=== PATIENT | female | born 1995 | race Caucasian/White ===

== ENCOUNTER 2022-11-17 06:56 | Emergency (ER) | payer SELFPAY ==
[2022-11-17 06:58] VITALS: BP 124/74; PULSE 94; RESP 15; TEMP 36.6; O2SAT 98
--- NOTE | 2022-11-17 07:11 | ED.GENADUL_ITS ---
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 Patient states that this is her first day off in a long time, and last night she had some cerumen cookie bars, with a small amount of recreational cocaine, and some alcohol. This was early in the evening, and went down without significant event, however at 4 AM she felt a sudden mood swing and took 2 or 3 handfuls of Tylenol, they were 325 mg apiece, and it was 20 to 30 tablets. She immediately regretted the decision, and did not know why she did that, but blamed it on the fluctuation in her mood from the previous drugs. She immediately began vomiting and vomited a few times to try to get all of the medication out. She states that she saw most of the pills in her vomitus that she felt that she consumed. She did have a fight with her verbally friend earlier in the evening, but states that this did not play into the emotional component that caused the Tylenol overdose. She called EMS out of concern that perhaps she took these and some made it through and she was concerned for her wellbeing. She denies any homicidal or suicidal ideations whatsoever at this time. She regrets the decision completely. When she was a young child she did try to cut herself superficially few times, but denies any other previous suicide attempts otherwise. No other complaints at this time. No other modifying factors. She denies any abdominal pain, chest pain, or shortness of breath. No numbness tingling or weakness. Exam demonstrates well-appearing female, vital signs stable. No neurologic abnormalities on exam. She certainly denies any suicidal ideations whatsoever at this time. Secondary to the action that she performed we will consult mental health for formal assessment although I do feel she is safe and does not need an observation sitter, or inpatient placement at this time. We will medically evaluate and clear the patient, monitor closely and reassess. Once her initial Tylenol level comes back we will reach out to poison control. Case will be signed out to my colleague Dr. Maribeth Tyson for follow-up on labs and consultations. HPI General Date/Time Provider Initiated Documentation: 11/17/22 07:07 . 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 Patient states that this is her first day off in a long time, and last night she had some cerumen cookie bars, with a small amount of recreational cocaine, and some alcohol. This was early in the evening, and went down without significant event, however at 4 AM she felt a sudden mood swing and took 2 or 3 handfuls of Tylenol, they were 325 mg apiece, and it was 20 to 30 tablets. She immediately regretted the decision, and did not know why she did that, but blamed it on the fluctuation in her mood from the previous drugs. She immediately began vomiting and vomited a few times to try to get all of the medication out. She states that she saw most of the pills in her vomitus that she felt that she consumed. She called EMS out of concern that perhaps she took these and some made it through and she was concerned for her wellbeing. She denies any homicidal or suicidal ideations whatsoever at this time. She regrets the decision completely. When she was a young child she did try to cut herself superficially few times, but denies any other previous suicide attempts otherwise. No other complaints at this time. No other modifying factors. She denies any abdominal pain, chest pain, or shortness of breath. No numbness tingling or weakness. General Stated Complaint: PsychEval BERT: 2 Review of Systems All systems reviewed & are unremarkable except as noted in HPI and below PFSH All Active Problems (Updated 11/17/22 @ 07:18 by Vlad Gilman DO) Overdose (Acute) Social History Smoking risk assessment performed?: No Exam Narrative Exam Narrative: 1.Const: Well-nourished, Well-developed, appearing stated age 2.Eyes: PERRL, no conjunctival injection, and symmetrical lids. 3.ENT: Atraumatic external nose and ears. Moist MM. Neck: Symmetric, trachea midline, No thyromegaly. 4.CVS: +S1/S2, No murmurs or gallops. Peripheral pulses 2+ and equal in all extremities. Brisk capillary refill in all extremities. 5.RESP: Unlabored respiratory effort. Clear to auscultation bilaterally. No wheezes rales or rhonchi 6.GI: Soft, Nontender/Nondistended, No hepatosplenomegaly. No guarding or rebound. 7.MSK: Normocephalic/Atraumatic, Extremities w/o deformity or ttp No cyanosis or clubbing, Normal movement of all extremities 8.Skin: Warm, Dry. No rashes or lesions. 9.Neuro: director of radiology II-XII grossly intact. Sensation grossly intact, no focal neurologic deficits. 10.Psych: (AAO) x3. Appropriate mood and affect Course Vital Signs Vital signs: Vital Signs Temperature 36.6 C 11/17/22 06:58 Pulse 94 H 11/17/22 06:58 Respiratory Rate 15 11/17/22 06:58 Blood Pressure 124/74 11/17/22 06:58 Pulse Oximetry 98 11/17/22 06:58 Temperature 36.6 C 11/17/22 06:58 Temperature Source Oral 11/17/22 06:58 Pulse 94 H 11/17/22 06:58 Respiratory Rate 15 11/17/22 06:58 Blood Pressure 124/74 11/17/22 06:58 Blood Pressure Position Sitting 11/17/22 06:58 Pulse Oximetry 98 11/17/22 06:58 Oxygen Delivery Method Room Air 11/17/22 06:58 Oxygen Flow Rate 0 11/17/22 06:58 Pain Level 10 11/17/22 06:58
--- NOTE | 2022-11-17 07:15 | RT.EKG_ITS ---
APPROVED REPORT Exam: Resting ECG Reason for Exam: overdose Patient Location: E HR:73 bpm ECG Measurements Heart Rate 73 AXIS WY 123 P 64 QRSd 87 QRS 46 QT 406 T 51 QTc 447 Conclusion Sinus rhythm...normal P axis, V-rate 60- 99 Physician: no stemi
[2022-11-17 07:43] LABS: *AMPHETAMINES SCREEN URINE Negative (Negative); *BARBITURATES SCREEN URINE Negative (Negative); *BENZODIAZEPINES SCREEN URINE Negative (Negative); Cannabinoids THC Positive (Negative); Cocaine Screen,Urine Positive (Negative); METHADONE URINE SCREEN Negative (Negative); OPIATES URINE SCREEN Negative (Negative); Tricyclic Antidepressants Negative (Negative)
[2022-11-17 07:45] LABS: Abs Immature Grans 0.05 10^3/uL (0.0-0.06); Absolute Eosinophil Count 0.59 10^3/uL (0.0-0.7); Absolute Monocyte Count 1.17 10^3/uL (0.1-0.8); Basophils % 0.9; Eosinophils % 3.9; HCT 41.6 % (36.0-46.0); Immature Grans % 0.3; Lymphocytes % 20.7; MCH 32.3 pg (27.0-33.0); MCHC 33.7 % (32.0-36.0); MCV 96 fL (80-95); MPV 9.8 fL (8.0-11.0); Monocytes % 7.7; Neutrophils % 66.5; Platelet Count 359 10^3/uL (130-400); RBC 4.33 10^6/uL (3.93-5.22); RDW 13.3 % (11.7-14.6); RDW-SD 47.8 fL; WBC 15.25 10^3/uL (4.4-10.8)
[2022-11-17 07:47] LABS: Absolute Basophil Count 0.14 10^3/uL (0.0-0.2); Absolute Lymphocyte Count 3.16 10^3/uL (1.2-3.4); Absolute Neutrophil Count 10.14 10^3/uL (1.2-6.7)
[2022-11-17 08:07] LABS: Acetaminophen 80 ug/mL (10-30); Salicylate < 2.8 mg/dL (<2.8)
[2022-11-17 08:19] LABS: ALT 17 U/L (14-59); AST 14 U/L (15-37); Albumin 3.9 g/dL (3.4-5.0); Alkaline Phosphatase 104 U/L (46-116); Anion Gap 10.3 mmol/L (3-11); BUN 3 mg/dL (7-18); Bilirubin, Total 0.9 mg/dL (0.2-1.0); CO2 24.7 mmol/L (21.0-32.0); CREATININE 0.7 mg/dL (0.55-1.02); Calcium 8.5 mg/dL (8.5-10.1); Chloride 108 mmol/L (98-107); ETHANOL BLOOD 38.1 mg/dL (<10); Estimated GFR 123.01 (mL/min/1.73m2); Glucose 90 mg/dL (74-106); Potassium 3.5 mmol/L (3.5-5.1); Sodium 143 mmol/L (136-145); TSH (W/Ref FT4) 1.48 uIU/mL (0.36-3.74); Total Protein 6.5 g/dL (6.4-8.2)
--- NOTE | 2022-11-17 09:22 | ED.PROG_ITS ---
Date of service: 11/17/22 Time of Service: 09:22 Medical Decision Making Patient resting comfortably no acute distress. No SI no HI. No signs of intoxication or trauma. No nausea vomiting or abdominal pain. Patient is hemodynamically stable. Has been screened by [facility] human services and cleared from a psychiatric perspective. Elevated Tylenol level at 3-hour yuridia which cannot be plotted on nomogram, will obtain repeat Tylenol level at 11 AM. Will empirically begin NAC prophylactically and will discontinue if levels below treatment line at 11 AM. 11: 57 patient did have some nausea and 1 episode of emesis controlled with fluids and Zofran. Resting comfortably no further episodes. Labs showing normal liver function and bilirubin. Initial Tylenol level was drawn before the 4-hour yuridia, repeat Tylenol level was drawn at 11 hours which falls below the nomogram of toxicity. Patient did receive an empiric dose of NAC while waiting for second Tylenol result, will be able to discontinue NAC at this juncture. Patient feeling comfortable to go home. Hemodynamically stable no acute distress. Given strict return precautions for any worsening symptoms Sign Out Sign Out Data: Sign Out Comment: Accidental Tylenol overdose, follow-up on labs and Tylenol and work-up and psych eval. Last updated by Vlad Gilman DO at 11/17/22 07:27 Discharge Plan Disposition Patient Disposition: Home Discharge Details Chief Complaint: PsychEval Clinical Impression: Overdose, Tylenol ingestion Primary Care Provider: None,None ED Provider: Jhonathan Kunz Discharge Instructions Instructions: Acetaminophen Overdose (ED), Adult Overdose (ED) Additional Instructions: Please follow-up with your primary care physician. Please return to the emergency department for any worsening symptoms
[2022-11-17] MEDS: Ondansetron 4 MG/2 ML VIAL IVP (10:25)
[2022-11-17 11:39] LABS: Acetaminophen 29 ug/mL (10-30)
--- NOTE | 2022-11-19 14:58 | NUR.NOTE ---
Accessed chart to determine orders for EKG and to determine whether or not one needs to be cancelled. Nursing Note:
== END 2022-11-17 12:25 | disposition home or self-care (01) ==
PROVIDERS: Student in an Organized Health Care Education/Training Program; Emergency Provider Emergency Medicine
DX: T39.1X1A Poisoning by 4-Aminophenol derivatives, accidental (unintentional), initial encounter (principal)
CPT/HCPCS: 80053; 80307; 81025; 93005; 96365; 96366; 96375; 99284; 80320; 80329; 84443; 85025; 93010; J0132; J2405

== ENCOUNTER 2023-04-10 22:38 | Emergency (ER) | payer SELFPAY ==
[2023-04-10] VITALS (18 sets, daily range): BP systolic 130; BP diastolic 81; PULSE 69–77; RESP 16; TEMP 37.1; O2SAT 98–100
--- NOTE | 2023-04-10 22:45 | W.ED.GENAD ---
Discharge Plan Disposition Patient Disposition: Home Discharge Details Clinical Impression: Adnexal cyst, Pelvic pain Primary Care Provider: None,None ED Provider: Chelita Pang Home Meds and New Rx's Prescriptions: No Action No Known Home Meds Discharge Instructions Instructions: Ovarian Cyst (ED), Dehydration (ED), Pelvic Pain in Women (ED) Additional Instructions: 1. You will be contacted by women's wellness with an appointment. Tell them that we tested for STIs in the department but you have not been given the results. 2. Call [phone] to schedule a pelvic ultrasound. 3. Alternate 1000 mg of acetaminophen and every 3 hours with 400 to 600 mg of ibuprofen as needed for pain. For pain not relieved by acetaminophen or ibuprofen you may take hydrocodone/acetaminophen that we dispensed tonight. This can be habit-forming. It can cause drowsiness as well as constipation. You should not drink alcohol, drive, operate heavy machinery or make important decisions while taking this medication. 4. Return here for any new or worrisome symptoms. Stand Alone Forms: Work Release Discharge Data Discharge Date/Time-TO BE ENTERED AT DEPARTURE: 04/11/23 01:22 Discharge Physician: Chelita Pang Medical Decision Making This is a 28-year-old female who presents with right lower quadrant pain that began 1 to 2 days prior to arrival. She does have a history of ovarian cyst and had similar although not identical symptoms at that time. She also has had nausea vomiting and diarrhea but has been able to keep down some food and liquids. She has not had emesis in several hours. She also endorses fever and chills although she has not been febrile while in the department. However she did take acetaminophen but that was greater than 4 hours ago and unlikely to still be having an effect. Her pelvic exam is reassuring. Her test done shortly after arrival is negative. We will obtain a CT scan to rule out appendicitis since ultrasound is not available. I will treat her with IV acetaminophen and ketorolac. Will keep her n.p.o. and give her IV fluids. She has not had any nausea or vomiting while in the department. We will wait for her renal function prior to CT contrast since she does have a history of nephrotic syndrome as a child. Will also check a urine for evidence of infection. If she does have appendicitis we will consult general surgery otherwise I will likely have her follow-up with ACCOUNTING RECONCILIATION CLERK and will arrange for an outpatient ultrasound. Disposition will depend on ancillary services. She could also have viral gastroenteritis or food poisoning but the symptoms have been going on only 1 to 2 days and there is no indication at this point to obtain stool samples. Differential Diagnosis Differential Diagnosis: Ovarian cyst, appendicitis, UTI, mesenteric adenitis, gastroenteritis Medical Records Medical records reviewed: Yes I reviewed the patient's medical records. Imaging Data Radiologic Study: Imaging: CT Scan (CT abdomen and pelvis without IV contrast) Radiologist's impression: vRad impression: Cystic areas in the adnexa measuring up to 4.9 cm. Differential possibilities include severely dilated fallopian tubes versus cystic masses. Correlate for pelvic inflammatory disease. Further evaluation with pelvic ultrasound may be helpful. No CT evidence for appendicitis. Nonspecific nonobstructed bowel gas pattern which may represent mild enteritis. Lab Data Lab results reviewed: Yes I reviewed the patient's lab results. Lab results narrative: Normal electrolytes normal renal function, mild leukocytosis with left shift, mild dehydration no evidence of UTI, GC and chlamydia pending HPI General Date/Time Provider Initiated Documentation: 04/10/23 22:45. Limitations to Documentation: no limitations. Information obtained by: patient. HPI Narrative: Time seen was 2245 in bed 8. The patient is a 28-year-old G0, P0 who presents with right lower quadrant pain which began 1 to 2 days prior to arrival. The patient has 1 sexual partner and does not use control but is not trying to get . She does have a history of ovarian cysts and tells me that the pain is similar but not identical to her prior symptoms with ovarian cysts. The pain began 1 to 2 days ago. It is constant but fluctuates in severity it is 7-8 out of 10 in severity and relieved by lying down and aggravated by upright position. It radiates to her right hip. She has had previous urinary tract infections and states her symptoms today are not similar to those symptoms. She denies any sick contacts or vaginal discharge she has had nausea vomiting and diarrhea for 1 day. She did take Dramamine prior to arrival as well as 1000 mg of acetaminophen at 5 PM. She denies any blood in her stool. She tells me she had nephrotic syndrome as a young child. She also endorses subjective fever and chills. She denies any foreign travel or unusual foods or sick contacts. She had eggs and toast prior to the onset of her nausea vomiting and diarrhea. She did not have pizza at 6 PM tonight. She took 1000 mg of acetaminophen at 5 PM this afternoon with minimal relief. She has regular menstrual cycles. Related Data Home Medications Medication Instructions Recorded Confirmed Unknown [No Known Home Meds] 04/10/23 04/10/23 Allergies Allergy/AdvReac Type Severity Reaction Status Date / Time No Known Allergies Allergy Unverified 04/10/23 22:50 General BERT: 2 Review of Systems Narrative: see hpi PFSH All Active Problems Pelvic pain (Acute) Adnexal cyst (Acute) Social History Smoking/Tobacco Use Status: Never Smoking risk assessment performed?: Yes Alcohol Intake: current Alcohol Intake frequency: 0-2 drinks per day Alcohol type: wine Drug use: Occasionally Substance use type: marijuana and crack/cocaine Housing: apartment Do you feel safe at home: Yes Do you feel safe in your relationship?: Yes Exam Narrative Exam Narrative: Patient is a well-developed well-nourished female who is alert and oriented in no acute distress. Her vital signs are within normal limits. She has a normal room air O2 sat. GCS is 15 Const General: cooperative, healthy appearing, comfortable, no acute distress, well developed, well groomed and well hydrated Nutritional Appearance: average body habitus and well nourished Orientation: alert, awake and oriented x3 HENMT Head: normal to inspection, normocephalic and atraumatic Ears: hearing grossly normal bilaterally and external ears normal General nose exam: external nose normal, nares normal and no nasal discharge Face and sinus: normal facial exam, sinuses nontender and face symmetric Mouth: oral mucosae normal, lip normal, tongue normal, oropharynx normal, moist mucous membranes and other (Normal phonation. The patient is handling secretions.) Throat: posterior oropharynx normal and uvula midline Eyes General: appearance normal, both eyes and all related structures Eyelids: eyelids normal Conjunctivae: conjunctivae normal Sclera: sclerae normal Cornea: corneas normal Pupils: PERRL EOM: EOM intact bilaterally and No nystagmus Neck Neck: normal visual inspection, full ROM, no lymphadenopathy, no meningeal signs, trachea midline and supple Lymphatic: no lymphadenopathy noted Chest Chest: normal inspection of the chest Resp Effort & Inspection: normal respiratory effort, able to speak in complete sentences, no audible wheezes, no nasal flaring, no respiratory distress, no retractions, no stridor, not tachypneic, no tracheal deviation, no use of accessory muscles, No prolonged expiratory phase and other (Normal inspiratory to expiratory ratio.) Auscultation: clear to auscultation bilaterally, no rales, no rhonchi, no wheezes and no rubs Tactile Fremitus: tactile fremitus absent Cardio Jugular venous pressure: no JVD Palpation: normal PMI Rate: regular rate Rhythm: regular rhythm Heart Sounds: S1 normal, S2 normal, no gallops, no murmurs and no rubs GI Inspection: normal to inspection and non-distended Palpation: soft, no hepatosplenomegaly, no guarding and tender in the RLQ, at McBurney's point, obturator sign positive, psoas sign positive and with rebound tenderness; Rovsing's sign negative Percussion: normal to percussion Auscultation: normal bowel sounds General: No CVA tenderness Other: 1:12 AM I did a pelvic exam after obtaining verbal consent. I was accompanied by the facility environmental technician. She had normal external genitalia. No rashes, no abnormal discharge or unusual odor. GC chlamydia and vaginal path were sent and are pending. Bimanual exam reveals mild tenderness of the right adnexa. No significant cervical motion tenderness. Cervix is closed. No bleeding. The patient tolerated the procedure well. Back/Spine/Pelvis Back: no CVA tenderness and No back tenderness Cervical Spine: normal cervical lordosis, cervical ROM normal, No cervical muscular tenderness, No pain with cervical ROM, No cervical spinal tenderness and No step off deformity Thoracic/Lumbar Spine: thoracic and lumbar spine normal to inspection, No thoracic spinal tenderness and No lumbar spinal tenderness Pelvis: no pain with anterior-posterior compression and no pain with lateral compression Skin General skin exam: no rashes or lesions noted, turgor normal, no petechiae, no purpura and other (Skin is normal for ethnicity.) Lesions: no lesions Rashes: no rashes Trauma: no lacerations or abrasions Neuro General: patient alert, patient awake, patient oriented x3, moves all extremities, no meningeal signs, no focal motor deficits and CN's II-XI intact bilaterally Cranial Nerves: CN's II-XI intact bilaterally, PERRL, accommodation normal, EOM intact bilaterally, no nystagmus, facial strength normal, tongue midline, hearing normal and no nystagmus Cognition: normal cognition Speech: speech normal Gait: normal gait Motor: muscle tone normal throughout and strength 5/5 throughout Sensory Exam: no sensory deficits noted Pupils: Normal pupillary reactivity/response: bilateral Extrem General: normal to inspection, full ROM, capillary refill normal, no clubbing, cyanosis or edema and no calf tenderness Psych Appearance: grossly normal Affect: normal affect Attitude: cooperative Thought Process: normal Thought Content: normal Insight: insight good Judgment: judgment good Other: The patient appears to have capacity make medical decisions. Course 00:42 AM I have updated the patient on the CT scan results. She denies any vaginal discharge but the CT did raise a concern for possible STI. She has agreed to a pelvic exam. I will check her for GC and chlamydia and we will do a wet prep. I am currently waiting to speak with the aquatic laborer about obtaining the specimen for bacterial vaginosis. 00:55a I have written for an outpatient ultrasound and advised the patient she will follow-up with ACCOUNTING RECONCILIATION CLERK as well. I have advised her to alternate acetaminophen every 3 hours with ibuprofen as needed for pain and return here for any new or worsening symptoms. Patient voiced understanding agree with the discharge plan. All her questions and concerns were addressed prior to discharge
--- NOTE | 2023-04-10 23:00 | DI.CT_ITS ---
Exam(s) CT ABDOMEN PELVIS W EXAM: CT ABDOMEN PELVIS W CLINICAL HISTORY: RLQ pain, r/o appy TECHNIQUE: Imaging Protocol: Axial computed tomography images with coronal and sagittal reformatted images were created and reviewed CONTRAST MATERIAL: Intravenous: Omnipaque 350 Contrast volume:85 mL Oral: No COMPARISON: No exams were available for comparison FINDINGS: ABDOMEN: Lung Bases: Normal where visualized. Liver: Normal density. No measurable mass. Portal, Superior Mesenteric, and Splenic Veins: Unremarkable. Gallbladder and Biliary Tract: No radiodense calculus or dilation. Pancreas: Normal density, no abnormal calcifications or inflammatory process. Spleen: Normal. Adrenals: No masses seen. Kidneys: Normal size, contour and axis. No radiodense stones or obstructive uropathy. No masses seen. Abdominal Aorta: Abdominal portion non-dilated. Bowel: No obstruction or bowel wall thickening. No evidence of appendicitis. Peritoneal Cavity: There is a trace amount of fluid in the cul-de-sac which is likely physiologic. N o free air. Lymph Nodes: Within normal limits. Bones: Within normal limits for the patient's age. Soft Tissues: Unremarkable. PELVIS: Bladder: Symmetric distention, no gross wall thickening. Reproductive Organs: There are bilateral adnexal cystic structures present. The largest on the left measures 4.6 x 2.4 cm. There is also a 3.2 x 3.1 cm left cystic lesion. The largest on the right me asures 4.9 x 3.0 cm. Lymph Nodes: Within normal limits. Bones: Within normal limits for the patient's age. IMPRESSION: Bilateral adnexal cystic structures. The largest on the right measures 4.9 x 3.0 cm. The largest on the left measures 4.6 x 2.4 cm. These may represent ovarian cysts, extra ovarian cysts or possible dilated fallopian tubes. A pelvic ultrasound should be considered for further evaluation. Please co rrelate for any history of pelvic inflammatory disease. RADIATION DOSE DELIVERED: Total DLP DATA REPOSITORY: All CT scans at this facility are submitted to the National Radiology Data Registry (NRDR) Dose Index Registry (DIR) with the [employer] (ACR). RADIATION OPTIMIZATION: All CT scans at this facility use at least one of these dose optimization te chniques: automated exposure control; mA and/or kV adjustment per patient size (includes targeted exa ms where dose is matched to clinical indication); or iterative reconstruction.
[2023-04-10 23:20] LABS: Bilirubin Small (Negative); Blood Negative (Negative); Clarity Sl Cloudy (Clear); Glucose Negative (Negative); Ketones 15 mg/dL (Negative); Leukocyte Esterase Negative (Negative); Nitrite Negative (Negative); Specific Gravity >= 1.030 (1.005-1.025); Urobilinogen 0.2 mg/dL (Up to 0.2)
[2023-04-10] MEDS: ACETAMINOPHEN 1,000 MG/100 ML BTL 400 MG IVPB (23:32)
[2023-04-10 23:33] LABS: Abs Immature Grans 0.03 10^3/uL (0.0-0.06); Absolute Basophil Count 0.08 10^3/uL (0.0-0.2); Absolute Eosinophil Count 0.43 10^3/uL (0.0-0.7); Absolute Lymphocyte Count 4.21 10^3/uL (1.2-3.4); Absolute Monocyte Count 0.97 10^3/uL (0.1-0.8); Absolute Neutrophil Count 8.17 10^3/uL (1.2-6.7); Basophils % 0.6; Eosinophils % 3.1; HCT 39.3 % (36.0-46.0); HGB 13.3 g/dL (11.2-15.7); Immature Grans % 0.2; Lymphocytes % 30.3; MCHC 33.8 % (32.0-36.0); MCV 95 fL (80-95); MPV 9.4 fL (8.0-11.0); Neutrophils % 58.8; Platelet Count 349 10^3/uL (130-400); RBC 4.15 10^6/uL (3.93-5.22); RDW 13.1 % (11.7-14.6); RDW-SD 46.1 fL; WBC 13.89 10^3/uL (4.4-10.8)
[2023-04-10] MEDS: Normal Saline 1,000 ML 1000 ML IV (23:34)
[2023-04-10] MEDS: Ketorolac 15 MG/ML VIAL IVP (23:34)
[2023-04-10 23:49] LABS: ALT 18 U/L (14-59); AST 13 U/L (15-37); Albumin 3.7 g/dL (3.4-5.0); Alkaline Phosphatase 83 U/L (46-116); BUN 11 mg/dL (7-18); Bilirubin, Total 0.9 mg/dL (0.2-1.0); CREATININE 0.8 mg/dL (0.55-1.02); Calcium 8.6 mg/dL (8.5-10.1); Chloride 105 mmol/L (98-107); Estimated GFR 104.15 (mL/min/1.73m2); Glucose 95 mg/dL (74-106); Magnesium 1.9 mg/dL (1.8-2.4); Potassium 3.5 mmol/L (3.5-5.1); Sodium 140 mmol/L (136-145); Total Protein 6.3 g/dL (6.4-8.2)
[2023-04-10] MEDS: Normal Saline - Diluent 50 ML VIAL IJ (23:57)
[2023-04-10] MEDS: Normal Saline Flush 10 ML SYR IVP (23:58)
[2023-04-10] MEDS: Omnipaque 350 MG/ML 100 ML BTL IJ (23:58)
[2023-04-11] VITALS (47 sets, daily range): O2SAT 92–100
--- NOTE | 2023-04-11 00:27 | DI.VRAD_ITS ---
PROCEDURE INFORMATION: Exam: CT Abdomen And Pelvis With Contrast Exam date and time: 04/11/2023 12:00 AM Age: 28 years old Clinical indication: Abdominal pain; Localized; Right lower quadrant (rlq); Patient HX: Rlq pain, R/O appy TECHNIQUE: Imaging protocol: Computed tomography of the abdomen and pelvis with contrast. Radiation optimization: All CT scans at this facility use at least one of these dose optimization techniques: automated exposure control; mA and/or kV adjustment per patient size (includes targeted exams where dose is matched to clinical indication); or iterative reconstruction. Contrast material: OMNIPAQUE 350; Contrast volume: 85 ml; Contrast route: INTRAVENOUS (IV); COMPARISON: No relevant prior studies available. FINDINGS: Liver: Normal. No mass. Gallbladder and bile ducts: Normal. No calcified stones. No ductal dilation. Pancreas: Normal. No ductal dilation. Spleen: Normal. No splenomegaly. Adrenal glands: Normal. No mass. Kidneys and ureters: Normal. No hydronephrosis. Stomach and bowel: No obstruction. Mild mucosal thickening. Appendix: No evidence of appendicitis. Intraperitoneal space: Unremarkable. No free air. No significant fluid collection. Vasculature: Unremarkable. No abdominal aortic aneurysm. Lymph nodes: Unremarkable. No enlarged lymph nodes. Urinary bladder: Unremarkable as visualized. Reproductive: Cystic structures anterior to the uterus in the right pelvis which may be within the right adnexa measuring up to 4.9 cm. Question dilated left fallopian tube versus cystic area in the left adnexa Bones/joints: Unremarkable. No acute fracture. Soft tissues: Unremarkable. IMPRESSION: Cystic areas in the adnexae measuring up to 4.9 cm. Differential possibilities include severely dilated fallopian tubes versus cystic masses. Correlate for pelvic inflammatory disease. Further evaluation with pelvic ultrasound may be helpful No CT evidence for appendicitis Nonspecific nonobstructed bowel gas pattern which may represent mild enteritis Dictated and Authenticated by: Ari Iniguez MD. Ordering:MIRELLA Merlos MD
--- NOTE | 2023-04-11 00:56 | NUR.NOTE ---
Referral faxed to [facility] to f/u in a week for adnexal cyst. Faxed pelvic ultrasound requisition to [facility], instructed patient to call [facility] scheduling to make appointment, pelvic ultrasound instruction sheet given to patient.Nursing Note:
[2023-04-12 14:12] LABS: Chlamydia Result Negative (Negative); GC Result Negative (Negative)
== END 2023-04-11 01:22 | disposition home or self-care (01) ==
PROVIDERS: Emergency Provider Emergency Medicine Emergency Medical Services
DX: R11.2 Nausea with vomiting, unspecified (principal); R10.31 Right lower quadrant pain; N83.8 Other noninflammatory disorders of ovary, fallopian tube and broad ligament
CPT/HCPCS: 36415; 80053; 81025; 87491; 87591; 96361; 96374; 96375; 99285; 74177; 81003; 83735; 85025; 87480; 87510; 87660; 99284; J0131; J1885; J3490

== ENCOUNTER 2023-04-12 08:29 | Observation (INO) | payer SELFPAY ==
[2023-04-12] VITALS (7 sets, daily range): BP systolic 101–152; BP diastolic 64–88; PULSE 54–73; RESP 12–20; TEMP 36.3–37; O2SAT 97–100
--- NOTE | 2023-04-12 08:53 | ED.GENADUL_ITS ---
Discharge Plan Disposition Patient Disposition: Admit to [facility] Condition: Poor Discharge Details Chief Complaint: Abd Prob Clinical Impression: Hydrosalpinx, Acute dehydration, Pelvic pain Admit Date/Time: 04/12/23 10:17 Admit Provider: Tana Mojica Attending Provider: Tana Mojica Primary Care Provider: None,None ED Provider: Noreen Loving Discharge Data Discharge Date/Time-TO BE ENTERED AT DEPARTURE: 04/12/23 11:40 Medical Decision Making Patient is a 28-year-old female with no significant past medical history, presenting today with continued right lower quadrant pain, nausea, vomiting. States has been ongoing for the past 3 days. Was seen yesterday in the ED at which time CT was obtained showing possible ovarian cyst. POC was negative. Urine without evidence of infection. No evidence of appendicitis. Patient was discharged home with Vicodin to help with her pain. STI panel is pending. She underwent a pelvic exam which is fairly unremarkable. She denies any vaginal discharge. LMP was 3 to 4 weeks ago. States that she has had similar abdominal pain in the past. Patient reports that she smokes weed daily. This morning, patient underwent a transvaginal ultrasound, radiologist interpretation as follows: UTERUS: Position: Anteverted. Size: 1.1 long by 2.6 AP by 4.4 transverse cm Endometrium: 0.9 cm. Normal for patient's menstrual status. There is a small amount of fluid in the endometrial canal. Myometrium: Unremarkable. Cervix: Unremarkable. OVARIES: Right: 3.6 x 2.9 x 3.5 cm Cyst or mass: No suspicious cystic or solid masses. There is a 2 x 1.8 x 2.1 cm simple cyst on the right ovary. Left: 3.7 x 2.9 x 3.1 cm Cyst or mass: No suspicious cystic or solid masses. DOPPLER: Color: Symmetric and uniform flow to both ovaries. CUL-DE-SAC: Free fluid: None. Other: Serpiginous cystic lesions are seen bilaterally in the adnexa between the uterus and the ovaries. No internal debris is seen. There of somewhat irregular case. No abnormal blood flow seen. No other fluid collections are seen in the pelvis sonographically to suggest an abscess. IMPRESSION: 1. Normal-appearing uterus with endometrial stripe within normal limits. 2. Unremarkable bilateral ovaries. 3. Bilateral serpiginous adnexal cystic lesions. This may represent hydrosalpinx. No debris seen within the fluid structures. Pelvic inflammatory disease should be considered. Please correlate clinically. There is a small amount of fluid seen in the endometrial canal. Patient reports that since leaving here yesterday, her pain has increased along the right lower quadrant. She denies any fevers or chills. States that she has been continuously vomiting. States the diarrhea has largely stopped. Has not taken any medications that she did not when she keep these down. He has not had any hematemesis. No chest pain or shortness of breath. Denies any other new symptoms. On exam, patient appears very anxious. She is moaning loudly, writhing in the bed. Requesting heat pack. Dry heaving is noted. Lungs are clear, normal cardiac exam. No CVA tenderness. Abdominal exam concerning for pain along the right lower quadrant with no guarding at this time. No pain elsewhere. Based on the above ultrasound, concern for potential PID. Will consult with HUMAN RESOURCES ADVISOR. Patient initially given Zofran and Tylenol with minimal effect. Hydrating the patient. Will give Reglan and Benadryl to help with vomiting. While PID is most likely, also considered cannaboid induced hyperemesis. Discussed with patient and advised she cut back. She ahs had severe pain in the past with associated vomiting and smokes daily. Advised cutting back. WBC elevated at 26, will add lactate. With her worsening symptoms and findings on US, will begin on IV abx. As she is vomiting so frequently, concerned will not tolerate PO abx. She has had new sexual partner recently, no STI testing. Testing from yesterday still pending. Consulted with Dr. Mojica who evaluated the patient and preformed genital e xam. As she was evaluating patiet and she also had pelvic yesterday, held off in ED currently. She agrees to admission for PID. Lactate 2.9. Discussed admission with patient, she agrees to this plan. After speaking with Dr. Mojica, will add ativan and toradol to help with pain/anxiety. I am worried that her frequent yelling and level of anxiety are adding to her pain. HPI General Date/Time Provider Initiated Documentation: 04/12/23 08:29 . Limitations to Documentation: no limitations . Information obtained by: patient, RN notes reviewed and old records reviewed . History of Present Illness 28 year old F presents to the emergency department with the chief complaint of abodminal pain , described as severe and similar to prior episodes (had similar episdone month prior), with intensity rated at 10. Quality is described as stabbing, and is localized to the abdomen. Patient reports no radiation. Patient started experiencing this day(s) (3) and it has been constant. No relieving factors improve symptom(s), No exacerbating factors reported . Patient notes loss of appetite, malaise and nausea/vomiting; denies chest pain, cough, diaphoresis, fever/chills, headaches, rash, shortness of breath and weakness. Patient did receive the following treatments prior to arrival, other (vicodin) Related Data Home Medications Medication Instructions Recorded Confirmed Unknown [No Known Home Meds] 04/10/23 04/12/23 Allergies Allergy/AdvReac Type Severity Reaction Status Date / Time No Known Allergies Allergy Unverified 04/12/23 08:36 General Stated Complaint: Abd Prob BERT: 3 Review of Systems Constitutional Constitutional: Reports as per HPI, Denies chills and Denies fever(s) Cardiovascular Cardiovascular: Reports as per HPI, Denies chest pain and Denies dyspnea Respiratory Respiratory: Reports as per HPI, Denies cough and Denies dyspnea Gastrointestinal Gastrointestinal: Reports as per HPI Genitourinary Genitourinary: Denies abnormal menses, Denies abnormal vaginal bleeding, Denies hematuria, Denies difficulty voiding, Denies genital lesions, Denies dysuria, Reports pelvic pain (RLQ), Denies flank pain, Denies vaginal discharge and Denies vaginal odor Musculoskeletal Musculoskeletal: Reports as per HPI and Denies back pain Integumentary/Breasts Skin/Breast: Reports as per HPI and Denies rash Neurologic Neurologic: Reports as per HPI PFSH All Active Problems (Updated 04/12/23 @ 13:41 by JONATHON La) Acute dehydration (Acute) Hydrosalpinx (Acute) bilateral. Pelvic pain (Acute) Adnexal cyst (Acute) Social History (Updated 04/12/23 @ 10:34 by Tana Mojica MD) Smoking/Tobacco Use Status: Never Smoking risk assessment performed?: Yes Alcohol Intake: current Alcohol Intake frequency: 0-2 drinks per day Alcohol type: wine Drug use: Occasionally Substance use type: marijuana and crack/cocaine Household members: significant other and other Details: radha. 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 Do you feel safe at home: Yes Do you feel safe in your relationship?: Yes Exam Const General: healthy appearing, uncomfortable, well developed, in distress mild (flailing in bed, moaning, dry heaving) and anxious Nutritional Appearance: average body habitus and well nourished Orientation: alert and awake HENMT Head: normal to inspection Mouth: moist mucous membranes Resp Effort & Inspection: normal respiratory effort, able to speak in complete sentences and no respiratory distress Auscultation: clear to auscultation bilaterally, no rales, no rhonchi and no wheezes Cardio Rate: regular rate Rhythm: regular rhythm Heart Sounds: S1 normal and S2 normal GI Inspection: normal to inspection Palpation: soft, no hepatosplenomegaly, no guarding, no masses, not rigid and tender in the RLQ; not at McBurney's point, Kauffman's sign negative and with no rebound tenderness Percussion: normal to percussion Auscultation: normal bowel sounds Back/Spine/Pelvis Back: no CVA tenderness Skin General skin exam: no rashes or lesions noted Trauma: no lacerations or abrasions Neuro General: patient alert and patient awake Cognition: normal cognition Speech: speech normal Gait: normal gait Psych Appearance: grossly normal and well kempt Mental Status: mental status grossly normal Speech and Movement: agitated and restless Mood: anxious mood Course Vital Signs Vital signs: Vital Signs Temperature 36.3 C L 04/12/23 08:34 Pulse 68 04/12/23 08:34 Respiratory Rate 20 04/12/23 08:34 Blood Pressure 152/79 H 04/12/23 08:34 Pulse Oximetry 100 04/12/23 08:34 Temperature 36.3 C L 04/12/23 08:34 Temperature Source Temporal Artery Scan 04/12/23 08:34 Pulse 68 04/12/23 08:34 Respiratory Rate 20 04/12/23 08:34 Respiratory Effort Normal, Non-Labored 04/12/23 08:37 Blood Pressure 152/79 H 04/12/23 08:34 Blood Pressure Position Sitting 04/12/23 08:34 Pulse Oximetry 100 04/12/23 08:34 Oxygen Delivery Method Room Air 04/12/23 08:34 Oxygen Flow Rate 0 04/12/23 08:34
[2023-04-12] MEDS: Lactated Ringers 1,000 ML 1000 ML IV (08:57)
[2023-04-12] MEDS: Ondansetron 4 MG/2 ML VIAL IVP (08:58)
[2023-04-12 09:01] LABS: Abs Immature Grans 0.15 10^3/uL (0.0-0.06); Absolute Lymphocyte Count 3.96 10^3/uL (1.2-3.4); Basophils % 0.6; Eosinophils % 1.1; HCT 40.8 % (36.0-46.0); Immature Grans % 0.6; Lymphocytes % 15.1; MCH 31.9 pg (27.0-33.0); MCHC 34.3 % (32.0-36.0); MCV 93 fL (80-95); MPV 9.5 fL (8.0-11.0); Monocytes % 4.8; Neutrophils % 77.8; Platelet Count 417 10^3/uL (130-400); RBC 4.39 10^6/uL (3.93-5.22); RDW 12.6 % (11.7-14.6); RDW-SD 43.6 fL
[2023-04-12] MEDS: ACETAMINOPHEN 1,000 MG/100 ML BTL 400 MG IVPB (09:01)
[2023-04-12 09:13] LABS: Absolute Basophil Count 0.16 10^3/uL (0.0-0.2); Absolute Eosinophil Count 0.29 10^3/uL (0.0-0.7); Absolute Monocyte Count 1.26 10^3/uL (0.1-0.8); Absolute Neutrophil Count 20.38 10^3/uL (1.2-6.7)
[2023-04-12 09:15] LABS: ALT 20 U/L (14-59); AST 14 U/L (15-37); Albumin 4.2 g/dL (3.4-5.0); Alkaline Phosphatase 94 U/L (46-116); Anion Gap 14.5 mmol/L (3-11); BUN 10 mg/dL (7-18); Bilirubin, Total 0.7 mg/dL (0.2-1.0); CO2 20.5 mmol/L (21.0-32.0); CREATININE 0.8 mg/dL (0.55-1.02); Chloride 104 mmol/L (98-107); Estimated GFR 104.15 (mL/min/1.73m2); Glucose 127 mg/dL (74-106); Lipase 42 U/L (16-77); Magnesium 1.7 mg/dL (1.8-2.4); Potassium 3.6 mmol/L (3.5-5.1); Sodium 139 mmol/L (136-145); Total Protein 7.1 g/dL (6.4-8.2)
[2023-04-12 09:28] LABS: Lactate 2.9 mmol/L (0.6-1.4)
[2023-04-12] MEDS: diphenhydrAMINE 50 MG/ML VIAL 25 MG IVP (09:28)
[2023-04-12] MEDS: Metoclopramide 10 MG/2 ML VIAL IVP (09:29)
[2023-04-12 09:32] LABS: Diff Comment Diff Reviewed; RBC Morphology Normal
--- NOTE | 2023-04-12 10:20 | W.GYNCONSULT ---
Date of service: 04/12/23 Time of Service: 10:20 Assessment and Plan Assessment and plan (1) Hydrosalpinx: Status: Acute Assessment and plan: Pt will be admitted for pain control and IV antibiotics for bilateral hydrosalpinx and presumed PID. (2) Pelvic pain: Status: Acute Assessment and plan: Pt received NSAIDs for pain and Ativan for anxiety. IV narcotics for pain control. Antiemetics for N/V History of Present Illness History of Present Illness Chief Complaint: Pelvic pain, bilateral hydrosalpinx Consults Consult date: 04/12/23 Review of Systems Constitutional Constitutional: Reports anorexia and Reports poor appetite Cardiovascular Cardiovascular: Reports rapid heart rate Respiratory Respiratory: Reports system reviewed and no additional complaints, except as documented Gastrointestinal Gastrointestinal: Reports abdominal pain, Reports nausea and Reports vomiting Genitourinary Genitourinary: Reports system reviewed and no additional complaints, except as documented Musculoskeletal Musculoskeletal: Reports system reviewed and no additional complaints, except as documented Integumentary/Breasts Skin/Breast: Reports system reviewed and no additional complaints, except as documented Neurologic Neurologic: Reports system reviewed and no additional complaints, except as documented Psychiatric Psychiatric: Reports anxiety PFSH All Active Problems (Updated 04/12/23 @ 10:33 by Tana Mojica MD) Hydrosalpinx (Acute) bilateral. Pelvic pain (Acute) Adnexal cyst (Acute) Social History (Updated 04/12/23 @ 10:34 by Tana Mojica MD) Smoking/Tobacco Use Status: Never Smoking risk assessment performed?: Yes Alcohol Intake: current Alcohol Intake frequency: 0-2 drinks per day Alcohol type: wine Drug use: Occasionally Substance use type: marijuana and crack/cocaine Household members: significant other and other Details: radha. 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 Do you feel safe at home: Yes Do you feel safe in your relationship?: Yes Exam Narrative Exam Narrative: Patient is a 28-year-old G0 female who returns to ED with worsening abdominal pain. No significant past medical history, presenting today with continued right lower quadrant pain, nausea, vomiting. States has been ongoing for the past 3 days. Was seen yesterday in the ED at which time CT was obtained showing possible ovarian cyst. POC was negative. Urine without evidence of infection. No evidence of appendicitis. Patient was discharged home with Vicodin to help with her pain. STI panel is pending. At the time of representation to ED her bimanual pelvic exam was tolerated by pt. She denies any vaginal discharge. LMP was 3 to 4 weeks ago. Const General: acute distress Nutritional Appearance: average body habitus Orientation: alert, awake and oriented x3 Resp Effort & Inspection: normal respiratory effort Auscultation: clear to auscultation bilaterally Cardio Rate: regular rate and tachycardic Rhythm: regular rhythm GI Inspection: normal to inspection Palpation: soft, no guarding, no masses, tender (mild. no rebound, no referred pain. ) and No ascites Percussion: normal to percussion Rectal Exam - female: deferred General: deferred (Pt had bimanual exam previously. Declines pelvic exam secondary to pain) Back/Spine/Pelvis Back: no CVA tenderness Skin General skin exam: no rashes or lesions noted Neuro Cognition: normal cognition Speech: speech normal Extrem General: normal to inspection Psych Appearance: disheveled Mental Status: mental status grossly normal Speech and Movement: agitated and restless Mood: anxious mood Results Last Vital Signs Temp 97.6 F 04/12/23 09:50 Pulse 98 H 04/12/23 09:50 Resp 20 04/12/23 09:50 BP 142/71 H 04/12/23 09:50 Pulse Ox 98 04/12/23 09:50 Labs 04/12/23 08:45 04/12/23 08:45 Labs: Laboratory Results - last 24 hr 04/12/23 04/12/23 08:45 09:22 WBC 26.20 H* RBC 4.39 Hgb 14.0 Hct 40.8 MCV 93 MCH 31.9 MCHC 34.3 RDW 12.6 Plt Count 417 H MPV 9.5 Immature Gran % 0.6 Neutrophils % 77.8 Lymphocytes % 15.1 Monocytes % 4.8 Eosinophils % 1.1 Basophils % 0.6 Nucleated RBC % 0.0 Absolute Neutrophils 20.38 H Absolute Lymphocytes 3.96 H Absolute Monocytes 1.26 H Absolute Eosinophils 0.29 Absolute Basophils 0.16 RBC Morphology Normal VBG Lactate 2.9 H* Sodium 139 Potassium 3.6 Chloride 104 Carbon Dioxide 20.5 L Anion Gap 14.5 H BUN 10 Creatinine 0.8 Est GFR (CKD-EPI 2020) 104.15 Glucose 127 H Calcium 9.0 Magnesium 1.7 L Total Bilirubin 0.7 AST 14 L ALT 20 Alkaline Phosphatase 94 Total Protein 7.1 Albumin 4.2 Lipase [address] scan report/results: report reviewed US - pelvic: report reviewed
[2023-04-12] MEDS: LORazepam 2 MG/ML VIAL 1 MG IVP (10:25)
[2023-04-12] MEDS: Ketorolac 15 MG/ML VIAL IVP (10:25)
[2023-04-12] MEDS: cefTRIAXone 1 GM/50 ML BAG IVPB (10:25)
[2023-04-12] MEDS: DOXYCYCLINE 100 MG in Normal Saline 100 ML IVPB (11:03)
[2023-04-12] MEDS: Lactated Ringers 1,000 ML 150 ML IV ×2 (11:06→18:34)
[2023-04-12] MEDS: MORPHine 2 MG/ML SYR IVP ×2 (12:29→14:34)
[2023-04-12] MEDS: Normal Saline Flush 10 ML SYR IVP ×5 (12:30→21:18)
[2023-04-12] MEDS: metroNIDAZOLE 500 MG/100 ML BAG 100 MG IVPB (12:30)
[2023-04-12] MEDS: Ketorolac 30 MG/ML VIAL IVP ×2 (16:19→21:17)
--- NOTE | 2023-04-12 17:54 | PGE_ITS ---
Date of Service Date of service: 04/12/23 Time of Service: 17:54 Subjective Subjective Patient reports: pain is less, tolerating liquids well, voiding w/o difficulty and nausea (improved with Ondansetron); denies diarrhea Interval history since last seen: Pt admitted to Med Surg on [facility] and receiving IV abx and IV pain meds. Pt reports that emesis has improved. Pain has subided. Has received Toradol in addition to IV morphine for pelvic pain. Exam Narrative Exam Narrative: Sitting in bed, semi-fowlers eating. No acute distress. Const General: comfortable Nutritional Appearance: average body habitus Orientation: alert, awake and oriented x3 Resp Effort & Inspection: normal respiratory effort GI Palpation: soft, no masses and tender (mildly tender to palpation) in the LLQ and in the RLQ Rectal Exam - female: deferred General: deferred Skin General skin exam: no rashes or lesions noted Neuro Cognition: normal cognition Speech: speech normal Extrem General: normal to inspection Psych Appearance: grossly normal Mental Status: mental status grossly normal Speech and Movement: speech and movement normal Mood: congruent mood Objective Last Vital Signs Temp 98.6 F 04/12/23 15:23 Pulse 66 04/12/23 15:23 Resp 17 04/12/23 15:23 BP 111/65 04/12/23 15:23 Pulse Ox 98 04/12/23 15:23 Laboratory Results - last 24 hr 04/12/23 04/12/23 08:45 09:22 WBC 26.20 H* RBC 4.39 Hgb 14.0 Hct 40.8 MCV 93 MCH 31.9 MCHC 34.3 RDW 12.6 Plt Count 417 H MPV 9.5 Immature Gran % 0.6 Neutrophils % 77.8 Lymphocytes % 15.1 Monocytes % 4.8 Eosinophils % 1.1 Basophils % 0.6 Nucleated RBC % 0.0 Absolute Neutrophils 20.38 H Absolute Lymphocytes 3.96 H Absolute Monocytes 1.26 H Absolute Eosinophils 0.29 Absolute Basophils 0.16 RBC Morphology Normal VBG Lactate 2.9 H* Sodium 139 Potassium 3.6 Chloride 104 Carbon Dioxide 20.5 L Anion Gap 14.5 H BUN 10 Creatinine 0.8 Est GFR (CKD-EPI 2020) 104.15 Glucose 127 H Calcium 9.0 Magnesium 1.7 L Total Bilirubin 0.7 AST 14 L ALT 20 Alkaline Phosphatase 94 Total Protein 7.1 Albumin 4.2 Lipase 42 Time Spent with Patient Time Spent with Patient: <25 minutes Time was spent: preparing to see the patient(eg.review tests), obtaining and/or reviewing separately otained hiistory and ordering medications,tests, procedures
[2023-04-12 18:19] LABS: Lab Add On Test DONE
[2023-04-12 18:41] LABS: TSH (W/Ref FT4) 1.89 uIU/mL (0.36-3.74)
[2023-04-12] MEDS: oxyCODONE 5 mg/Acetaminophen 325 mg TAB 1 TAB PO (19:37)
[2023-04-13] MEDS: Lactated Ringers 1,000 ML 150 ML IV ×2 (01:01→07:24)
[2023-04-13] MEDS: Ketorolac 30 MG/ML VIAL IVP ×2 (03:57→11:12)
[2023-04-13 06:45] LABS: HCT 35.2 % (36.0-46.0); HGB 11.6 g/dL (11.2-15.7); MCH 31.1 pg (27.0-33.0); MCV 94 fL (80-95); MPV 9.9 fL (8.0-11.0); Platelet Count 296 10^3/uL (130-400); RBC 3.73 10^6/uL (3.93-5.22); RDW 12.9 % (11.7-14.6); RDW-SD 44.9 fL; WBC 10.32 10^3/uL (4.4-10.8)
[2023-04-13 07:07] VITALS: BP 107/68; PULSE 69; RESP 15; TEMP 37.1; O2SAT 93
--- NOTE | 2023-04-13 10:22 | DSE_ITS ---
Date of service: 04/13/23 Time of Service: 10:23 DS: Diagnosis Discharge Diagnosis (1) Hydrosalpinx: Status: Acute Asessment and Plan: Unclear if hydrosalpinx are new or are an incidental finding of an older hydrosalpinx. No active abscess on current imaging of pelvis. Pt will require f/u. I have recmmended that she be seen by me in 2 weeks after completing Metronidazole for presumed PID. (2) Pelvic pain: Status: Acute Asessment and Plan: Neg gonorrhea and chlamydia testing. Pain is improved with nonsteroidal anti- inflammatories. Plan is to discharge her home with metronidazole for presumed PID and analgesics. She will follow-up in 2 weeks or as needed. Discharge Plan Disposition Patient Disposition: Home Condition: Improving Discharge Details Reason For Visit: Bilateral Hydrosalpinx, Pelvic Pain Admit Date/Time: 04/12/23 10:17 Admit Provider: Tana Mojica Attending Provider: Tana Mojica Primary Care Provider: None,None Hospital Course Hospital Course: Patient is a 28-year-old G0 female who presented to the [facility] emergency department on 04/11/2023 with abdominal pain. She had imaging performed on 04/12/23 that showed bilateral hydrosalpinx. She was reevaluated in the emergency department on 04/12/2023 for increased abdominal pain. She was admitted for pain control and IV antibiotics for presumed PID. Her gonorrhea and Chlamydia testing returned as negative. Her abdominal exam was improved by the morning of discharge. She received Rocephin metronidazole and doxycycline at the time of admission. The plan is to discharge her to home with 10 days of metronidazole and analgesics. She will follow-up in the [facility] in 2 weeks or as needed. Home Meds and New Rx's Prescriptions: New oxycodone-acetaminophen 5-325 mg Tablet 1 tab PO Q6H PRN MDD 4 PRNQty: 5 0RF metronidazole 500 mg tablet 500 mg PO Q12H Qty: 10 0RF Discharge Instructions Additional Instructions: Take ibuprofen 600 mg every 6 hours as needed for mild pain. Percocet 5/325 mg every 6 hours as needed for severe pain. Do not take acetaminophen if you are routinely taking the Percocet since the Percocet has acetaminophen in it. No sexual activity until you have are seen in the office in 2 weeks. Referral has been made to community connections to help you find health insurance. You will be taking metronidazole 500 mg twice a day for the next 7 days. Do not drink alcohol while you are taking the metronidazole as it will cause you to vomit. Return to the emergency department if your temperature is over 101.5, your nausea or vomiting recurs or your abdominal pain returns. You may return to work anytime you feel comfortable doing so Activity:: Activity as Tolerated Equipment/Supplies:: No Equipment Needed Diet:: As Tolerated Discharge Orders Discharge Orders: Discharge Order (Routine); Ordered 04/13/23 Ordered By: Tana Mojica DS: Summary Time Spent with Patient providing and/or coordinating discharge services: Less than 30 minutes Status at Discharge Functional status at discharge: independent ambulation Overall status at discharge: patient is progressing back to baseline Mental Status: mental status grossly normal Speech and Movement: speech and movement normal Mood: congruent mood Affect: normal affect Exam Narrative Exam Narrative: Sitting in bed, semi-fowlers eating. No acute distress. Const General: comfortable Nutritional Appearance: average body habitus Orientation: alert, awake and oriented x3 Resp Effort & Inspection: normal respiratory effort GI Palpation: soft, no masses and tender (mildly tender to palpation) in the LLQ and in the RLQ Rectal Exam - female: deferred General: deferred Skin General skin exam: no rashes or lesions noted Neuro Cognition: normal cognition Speech: speech normal Extrem General: normal to inspection Psych Appearance: grossly normal Mental Status: mental status grossly normal Speech and Movement: speech and movement normal Mood: congruent mood Affect: normal affect DS: Data Vitals/I&O Vitals and I&O: Vital Signs Temperature 98.8 F 04/13/23 07:07 Temperature Source Tympanic 04/13/23 07:07 Pulse 69 04/13/23 07:07 Pulse Rhythm Regular 04/12/23 22:45 Respiratory Rate 15 04/13/23 07:07 Respiratory Effort Normal, Short of Breath 04/12/23 22:45 Respiratory Depth Normal 04/12/23 22:45 Respiratory Pattern Normal 04/12/23 22:45 Blood Pressure 107/68 04/13/23 07:07 Blood Pressure Position Supine 04/12/23 09:50 Pulse Oximetry 93 04/13/23 07:07 Oxygen Delivery Method Room Air 04/13/23 07:07 Oxygen Flow Rate 0 04/13/23 07:07 Pain Level 0 04/13/23 07:07 Intake & Output 04/12/23 04/12/23 04/13/23 11:59 23:59 11:59 Intake Total 1160 / 2160 1000 / 2160 2067.5 / 7.5 Balance 1160 / 2160 1000 / 2160 2067.5 / 2066.5 Weight 130 lb Intake: IV 1160 / 2160 1000 / 2160 7.5 / 2066.5 Other: Urine Appearance Clear Clear Comment per patient she has jeremy to the bathroom 3times Data Completed and Pending Completed studies during hospitalization [Text1]: Abdominal pelvic CT. Pelvic ultrasound Pending studies at discharge: None Labs on day of discharge: Labs from last 24 hours 04/13/23 04/12/23 06:11 08:45 WBC 10.32 RBC 3.73 L Hgb 11.6 D Hct 35.2 L MCV 94 MCH 31.1 MCHC 33.0 RDW 12.9 Plt Count 296 MPV 9.9 TSH 1.89 Add-On Test Request DONE 04/12/23 10:03 Blood Blood Culture - Pending 04/12/23 09:50 Blood Blood Culture - Pending Preliminary micro results at discharge 04/12/23 10:03 Blood Culture - Pending Blood 04/12/23 09:50 Blood Culture - Pending Blood PFSH All Active Problems (Updated 04/13/23 @ 10:43 by Tana Mojica MD) Never uses contraception (Acute) History of OCPs and Depo in 2019 otherwise not actively contracepting Acute dehydration (Acute) Hydrosalpinx (Acute) bilateral. Pelvic pain (Acute) Adnexal cyst (Acute) Social History (Updated 04/13/23 @ 10:46 by Tana Mojica MD) Smoking/Tobacco Use Status: Never Smoking risk assessment performed?: Yes Alcohol Intake: current Alcohol Intake frequency: 0-2 drinks per day Alcohol type: wine Drug use: Occasionally Substance use type: marijuana and crack/cocaine Household members: other Details: Lives alone. Has pets. 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 Pets and animals: Yes Pets and animals: dog(s) Sexually active: Yes Do you feel safe at home: Yes Do you feel safe in your relationship?: Yes Additional Social history: Patient moved from [facility] in 2021 for relationship. Majority of her family reside in [place] Time Spent with Patient Time Spent with Patient: <45 minutes Time was spent: preparing to see the patient(eg.review tests), ordering medications,tests, procedures and indepentently interpreting results
--- NOTE | 2023-04-13 10:58 | CMPROGNOTE_ITS ---
Date of service: 04/13/23 Time of Service: 10:59 Care Management Progress Note Progress Note Text Progress Note Text: S/O: Purnima was lying in bed when CM met with her. She was discharged this morning after being observed overnight. CM identified that Purnima does not currently have insurance. 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 CM sent a referral to [employer] for insurance support, and discussed the [facility] patient assistance program. CM also offered a goodrx coupon to Purnima for the prescription that is being sent to the pharmacy for her, which reduced the cost to $8-$10. Purnima stated that a friend will drive her home, once she is ready. CM will continue to follow. A: Purnima is a 28 year old female admitted to observation at [facility] on 04/12/23 for bilateral hydrosalpinx, pelvic pain. P: Purnima is being discharged home with no new services. CM sent a referral to [employer] for follow up to assist with insurance support. She will follow up with OB and her discharge plan of care, and transport home with a friend via private vehicle.
[2023-04-13] MEDS: Normal Saline Flush 10 ML SYR IVP (11:11)
--- NOTE | 2023-04-13 11:38 | CHAPLAIN ---
Purnima was resting in bed when I visited. She was pleasant and engaged in a conversation. I explained my role and offered support.
== END 2023-04-13 11:59 | disposition home or self-care (01) ==
LOC: ER 09:09 → MS 12:23
PROVIDERS: Admitting Provider Obstetrics & Gynecology Gynecology; Emergency Provider Physician Assistant; Visit Provider Obstetrics & Gynecology Gynecology
DX: N70.11 Chronic salpingitis (principal); E86.0 Dehydration; R10.2 Pelvic and perineal pain; R11.2 Nausea with vomiting, unspecified; D72.829 Elevated white blood cell count, unspecified
CPT/HCPCS: 36415; 80053; 81025; 83690; 85027; 87040; 96360; 96365; 96367; 96375; 99285; 83605; 83735; 84443; 85025; G0378; J0131; J0696; J1200; J1885; J2060; J2270; J2405; J2765

== ENCOUNTER 2023-06-22 21:22 | Emergency (ER) | payer SELFPAY ==
[2023-06-22] VITALS (10 sets, daily range): BP systolic 125–189; BP diastolic 73–86; PULSE 46–101; RESP 12–28; TEMP 36.9; O2SAT 88–100
[2023-06-22] MEDS: Ondansetron 4 MG/2 ML VIAL (21:33)
[2023-06-22] MEDS: Lactated Ringers 1,000 ML 1000 ML IV ×2 (22:49→23:52)
[2023-06-22] MEDS: Droperidol 5 MG/2 ML VIAL IVP (22:49)
[2023-06-22] MEDS: Ondansetron 4 MG/2 ML VIAL IVP (22:49)
[2023-06-22 22:55] LABS: Abs Immature Grans 0.06 10^3/uL (0.0-0.06); Absolute Basophil Count 0.11 10^3/uL (0.0-0.2); Basophils % 0.6; Eosinophils % 2.7; HCT 38.7 % (36.0-46.0); HGB 13.2 g/dL (11.2-15.7); Immature Grans % 0.3; Lymphocytes % 17.3; MCHC 34.1 % (32.0-36.0); MCV 91 fL (80-95); Monocytes % 5.3; Neutrophils % 73.8; Platelet Count 356 10^3/uL (130-400); RBC 4.26 10^6/uL (3.93-5.22); RDW 12.7 % (11.7-14.6); RDW-SD 42.1 fL; WBC 18.84 10^3/uL (4.4-10.8)
[2023-06-22 22:58] LABS: Absolute Eosinophil Count 0.51 10^3/uL (0.0-0.7); Absolute Lymphocyte Count 3.26 10^3/uL (1.2-3.4)
[2023-06-22 23:10] LABS: ALT 22 U/L (14-59); AST 16 U/L (15-37); Albumin 4.2 g/dL (3.4-5.0); Alkaline Phosphatase 93 U/L (46-116); Anion Gap 12.3 mmol/L (3-11); BUN 7 mg/dL (7-18); Bilirubin, Total 0.9 mg/dL (0.2-1.0); CO2 22.7 mmol/L (21.0-32.0); CREATININE 0.9 mg/dL (0.55-1.02); Calcium 8.9 mg/dL (8.5-10.1); Chloride 107 mmol/L (98-107); Estimated GFR 90.42 (mL/min/1.73m2); Glucose 110 mg/dL (74-106); Lipase 28 U/L (16-77); Potassium 3.4 mmol/L (3.5-5.1); Sodium 142 mmol/L (136-145)
--- NOTE | 2023-06-22 23:17 | W.ED.GENAD ---
Discharge Plan Disposition Patient Disposition: Home Condition: Good Discharge Details Clinical Impression: Nausea & vomiting Primary Care Provider: None,None ED Provider: Vlad Gilman Home Meds and New Rx's Prescriptions: New ondansetron 4 mg tablet,disintegrating 4 mg PO Q8H Qty: 20 0RF Discharge Instructions Instructions: Acute Nausea and Vomiting (ED) Additional Instructions: At this time your electrolytes have returned normal. Your nausea has improved. We have decided to hold off on imaging for the time being secondary to the resolution of your symptoms. If your symptoms return or you have any return or worsening of your abdominal pain please return immediately for reassessment and potential imaging. Please take the Zofran as needed for nausea at home. If you notice any worsening of your symptoms, or any new symptoms such as vomiting, diarrhea, fever, chills, shortness of breath, chest pain, numbness, weakness, or fainting , please return immediately to the emergency department for reevaluation. Please follow up with your primary care provider as soon as possible for reassessment and reevaluation. As always, it was a pleasure participating in your medical care today. HPI General Date/Time Provider Initiated Documentation: 06/22/23 21:49. 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 Patient states that for the last 2 days she has had symptoms of nausea vomiting and mild generalized abdominal discomfort. Patient was getting slightly better this morning, and then she drank small amount of alcohol today which brought about her vomiting back. She denies any hematemesis. She denies any diarrhea. She states that she has had episodes like this in the past. She denies any chest pain or shortness of breath. She denies any fever or chills. No other complaints at this time. No other modifying factors. Related Data Home Medications Medication Instructions Recorded Confirmed ondansetron 4 mg disintegrating 4 mg PO Q8H #20 tabs 06/23/23 tablet Previous Rx's Medication Instructions Recorded ondansetron 4 mg disintegrating 4 mg PO Q8H #20 tabs 06/23/23 tablet Allergies Allergy/AdvReac Type Severity Reaction Status Date / Time No Known Allergies Allergy Unverified 06/22/23 21:30 General Stated Complaint: Abd Prob BERT: 3 Review of Systems All systems reviewed & are unremarkable except as noted in HPI and below Exam Narrative Exam Narrative: 1.Const: Well-nourished, Well-developed, appearing stated age 2.Eyes: PERRL, no conjunctival injection, and symmetrical lids. 3.ENT: Atraumatic external nose and ears. Notably dry MM. Neck: Symmetric, trachea midline, No thyromegaly. 4.CVS: +S1/S2, No murmurs or gallops. Peripheral pulses 2+ and equal in all extremities. Brisk capillary refill in all extremities. 5.RESP: Unlabored respiratory effort. Clear to auscultation bilaterally. No wheezes rales or rhonchi 6.GI: Soft, Nondistended, No hepatosplenomegaly. No guarding or rebound. No pain at McBurney's point, negative Kauffman sign. Mild achiness throughout. No focality. Actively retching. 7.MSK: Normocephalic/Atraumatic, Extremities w/o deformity or ttp No cyanosis or clubbing, Normal movement of all extremities 8.Skin: Warm, Dry. No rashes or lesions. 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 Sensation grossly intact, no focal neurologic deficits. 10.Psych: (AAO) x3. Appropriate mood and affect Course Vital Signs Vital signs: Vital Signs Temperature 36.9 C 06/22/23 21:24 Pulse 101 H 06/22/23 21:24 Respiratory Rate 18 06/22/23 21:24 Blood Pressure 189/86 H 06/22/23 21:24 Pulse Oximetry 98 06/22/23 21:24 Temperature 36.9 C 06/22/23 21:24 Temperature Source Temporal Artery Scan 06/22/23 21:24 Pulse 101 H 06/22/23 21:24 Respiratory Rate 18 06/22/23 21:24 Respiratory Effort Normal 06/22/23 21:31 Blood Pressure 189/86 H 06/22/23 21:24 Pulse Oximetry 98 06/22/23 21:24 Pain Level 9 06/22/23 21:24 Lab/Test Results Lab/Test Results: Laboratory Tests Range/Units 06/22/23 22:20 WBC (4.4-10.8) 10^3/uL 18.84 H RBC (3.93-5.22) 10^6/uL 4.26 Hgb (11.2-15.7) g/dL 13.2 Hct (36.0-46.0) % 38.7 MCV (80-95) fL 91 MCH (27.0-33.0) pg 31.0 MCHC (32.0-36.0) % 34.1 RDW (11.7-14.6) % 12.7 Plt Count (130-400) 10^3/uL 356 MPV (8.0-11.0) fL 10.0 Immature Gran % 0.3 Neutrophils % 73.8 Lymphocytes % 17.3 Monocytes % 5.3 Eosinophils % 2.7 Basophils % 0.6 Nucleated RBC % (0.0-0.3) % 0.0 Absolute Neutrophils (1.2-6.7) 10^3/uL 13.90 H Absolute Lymphocytes (1.2-3.4) 10^3/uL 3.26 Absolute Monocytes (0.1-0.8) 10^3/uL 1.00 H Absolute Eosinophils (0.0-0.7) 10^3/uL 0.51 Absolute Basophils (0.0-0.2) 10^3/uL 0.11 Sodium (136-145) mmol/L 142 Potassium (3.5-5.1) mmol/L 3.4 L Chloride (98-107) mmol/L 107 Carbon Dioxide (21.0-32.0) mmol/L 22.7 Anion Gap (3-11) mmol/L 12.3 H BUN (7-18) mg/dL 7 Creatinine (0.55-1.02) mg/dL 0.9 Est GFR (CKD-EPI 2020) (mL/min/1.73m2) 90.42 Glucose (74-106) mg/dL 110 H Calcium (8.5-10.1) mg/dL 8.9 Total Bilirubin (0.2-1.0) mg/dL 0.9 AST (15-37) U/L 16 ALT (14-59) U/L 22 Alkaline Phosphatase (46-116) U/L 93 Total Protein (6.4-8.2) g/dL 7.0 Albumin (3.4-5.0) g/dL 4.2 Lipase (16-77) U/L 28 Medical Decision Making This is a pleasant 28-year-old female with a 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 Patient states that for the last 2 days she has had symptoms of nausea vomiting and mild generalized abdominal discomfort. Patient was getting slightly better this morning, and then she drank small amount of alcohol today which brought about her vomiting back. She denies any hematemesis. She denies any diarrhea. She states that she has had episodes like this in the past. She denies any chest pain or shortness of breath. She denies any fever or chills. No other complaints at this time. No other modifying factors. Exam demonstrates notable achiness throughout on abdominal exam, notably dry mucous membranes, actively vomiting. No subcutaneous crepitus. No evidence of Boerhaave's/Aleaxndra-Diego. Suspect cyclic vomiting syndrome. Will rehydrate, medicate, monitor closely and reassess. We will give droperidol, Zofran, lactated Ringer's. 1:17 AM Laboratory workup has returned, patient does have an elevated white count, no bandemia though. She is afebrile. Electrolytes normal. Patient has been rehydrated with 1-3/4 L of lactated Ringer's. Patient is tolerated p.o., she has been able to drink well without difficulty. No more vomiting or retching. Repeat abdominal exam shows no evidence of significant focal tenderness. No pain at McBurney's point, negative Kauffman sign. No signs of an acute surgical abdomen whatsoever. Patient is feeling much better. I discussed with the patient potential imaging, we discussed risks and benefits of imaging versus holding off on imaging, radiation exposure etc. through notable discussion, weighing the risks and benefits, and a shared decision making process the patient has refused imaging at this time. Patient is of an appropriate age to make decisions. The patient is of sound mind, appears clinically sober, and has capacity to make decisions by my clinical exam. Respecting the patient's wishes we will hold off on imaging. I discussed continued observation versus discharge, and patient is feeling much better and is requesting to go home. We will give Zofran to go, as well as a prescription for home use. Recommend continued hydration at home. Discussed red flags for which to return. Suspect symptoms are likely caused by cyclic vomiting syndrome from marijuana use in the past, however gastroenteritis from a virus is certainly on the differential as well. Symptoms appear inconsistent with appendicitis, obstruction, cholecystitis. I have extensively reviewed the treatment plan and discharge instructions with the patient and their family. I have addressed all patient concerns at this time. The patient and family was made aware of what symptoms to monitor for that would warrant a return to the emergency department. Discussed the plan with the patient and family, they demonstrate verbal understanding and agreement with our assessment and plan at this time. The documentation in this chart was dictated using [facility] dictation software. Please excuse any dictation errors. Quality:SDOH Health Related Social Needs: No Data to Display PFSH All Active Problems (Updated 06/23/23 @ 01:12 by Vlad Gilman DO) Nausea & vomiting (Acute) Never uses contraception (Acute) History of OCPs and Depo in 2019 otherwise not actively contracepting Hydrosalpinx (Acute) bilateral. Adnexal cyst (Acute) Social History Smoking/Tobacco Use Status: Never Smoking risk assessment performed?: Yes Alcohol Intake: current Alcohol Intake frequency: a few times a month Alcohol type: wine Drug use: Occasionally Substance use type: marijuana Household members: other Details: Lives alone. Has pets. 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 Pets and animals: Yes Pets and animals: dog(s) Sexually active: Yes Do you feel safe at home: Yes Do you feel safe in your relationship?: Yes Additional Social history: Patient moved from [facility] in 2021 for relationship. Majority of her family reside in [place] PAWSS Have you Been Recently Intoxicated or Drunk Within the Last 30 days?: No Have you Ever Experienced Previous Episodes of Alcohol Withdrawal?: No Have you ever Experienced Withdrawal Seizures?: No Have you ever Experienced Delirium Tremens(DT)s?: No Have you ever undergone Alcohol Rehabilitation Treatment (i.e, inpt ot outpatient treatment programs)?: No Have you ever Experienced Blackouts?: No Have you ever Combined Alcohol with other Downers within the last 90 days?: No Have you ever Combined Alcohol with any other Substance of Abuse during the last 90 days?: No Positive Blood Alcohol level on Presentation? [PCS.BAL]: Unable to Obtain Evidence of Increased Autonomic Activity (i.e. HR>120, tremor, sweating, agitation, nausea)?: No Result: 0
[2023-06-23] VITALS (15 sets, daily range): BP systolic 116–130; BP diastolic 66–82; PULSE 68–91; RESP 16; O2SAT 95–99
[2023-06-23] MEDS: Metoclopramide 10 MG/2 ML VIAL IVP (00:49)
[2023-06-23] MEDS: Ondansetron O.D.T. 4 MG TABEF, 3 TABS/BTL PO (01:17)
== END 2023-06-23 01:26 | disposition home or self-care (01) ==
PROVIDERS: Emergency Provider Student in an Organized Health Care Education/Training Program
DX: R10.84 Generalized abdominal pain (principal); R11.2 Nausea with vomiting, unspecified
CPT/HCPCS: 80053; 83690; 96361; 96374; 96375; 99284; 85025; J1790; J2405; J2765

== ENCOUNTER 2023-09-12 01:49 | Emergency (ER) | payer SELFPAY ==
[2023-09-12] VITALS (106 sets, daily range): BP systolic 100–139; BP diastolic 52–97; PULSE 87–135; RESP 10–31; TEMP 36.2; O2SAT 91–99
--- NOTE | 2023-09-12 01:45 | DI.RAD_ITS ---
Exam(s) XR CHEST 2V PA LATERAL EXAM: XR CHEST 2V PA LATERAL CLINICAL HISTORY: eval for rib/sternal fracture. TECHNIQUE: 2D digital imaging was performed. COMPARISON: No exams were available for comparison FINDINGS: 2 views: Heart size is normal. The mediastinum is not widened. Lungs are clear. No infiltrates nor pleural effusions. IMPRESSION: No acute pulmonary findings. DATA REPOSITORY: RADIATION DOSE DELIVERED:
--- NOTE | 2023-09-12 02:04 | W.ED.GENAD ---
Discharge Plan Discharge Details Chief Complaint: OD/Poison Primary Care Provider: Unknown,Unknown ED Provider: Angela Kilgore Home Meds and New Rx's Prescriptions: No Action ondansetron 4 mg tablet,disintegrating 4 mg PO Q8H Qty: 20 0RF HPI General Mode of arrival: EMS. Date/Time Provider Initiated Documentation: 09/12/23 01:52. Limitations to Documentation: no limitations. Information obtained by: patient, family and EMS. HPI Narrative: 28yo F presenting via EMS for presumed drug overdose. EMS called for unresponsive female. Patient reports that she was 'partying' tonight after a hard day. Had alcohol, cocaine, percocet, and weed. Boyfriend subsequently found her unresponsive, 'purple' in color. No abnormal movements noted. Called 911 and began chest compressions. On EMS arrival they found patient unresponsive with agonal respirations and a strong pulse. Gave BVM and administered 2mg IN narcan followed by 1mg IV narcan after which patient became responsive and began vomiting, nonbloody nobilious emesis. Patient reports several day of nasal congestion and rhinnorhea. No fevers or chills. Some nausea earlier today, no vomiting until after she was given narcan by EMS. Has never overdosed before. Currently feels nauseated, continues vomiting. Dull sternal chest pain, noted after she regained consciousness. No shortness of breath at any point. She is otherwise in her usual state of health with no abdominal pain, dysuria, hematuria, headache, neck pain, numbness, tingling, weakness, or other concerns. LMP started 3 days ago. Related Data Home Medications Medication Instructions Recorded Confirmed ondansetron 4 mg disintegrating 4 mg PO Q8H #20 tabs 06/23/23 09/12/23 tablet Previous Rx's Medication Instructions Recorded ondansetron 4 mg disintegrating 4 mg PO Q8H #20 tabs 06/23/23 tablet Allergies Allergy/AdvReac Type Severity Reaction Status Date / Time No Known Allergies Allergy Unverified 09/12/23 01:59 General Stated Complaint: OD/Poison BERT: 2 Review of Systems Narrative: see HPI Exam Narrative Exam Narrative: General: Alert, retching Head: Normocephalic, atraumatic Neck: Trachea midline, ?Neck supple. ENT: ?Dry MM.? No oropharygeal lesions or exudate. Cardiac: ?Tachycardiac, regular, no murmurs appreciated. Sternum TTP. No crepitus. Resp: No respiratory distress. CTAB. Abd: ?Soft, non-distended, nontender : ?No suprapubic tenderness. No CVA tenderness. Extremities: ?No deformities.? No peripheral edema. Neurologic: GCS 15. ? Moves all extremities freely against gravity Course Vital Signs Vital signs: Vital Signs Temperature 36.2 C L 09/12/23 01:49 Pulse 126 H 09/12/23 01:49 Respiratory Rate 19 09/12/23 01:49 Blood Pressure 133/97 H 09/12/23 01:49 Pulse Oximetry 99 09/12/23 01:49 Temperature 36.2 C L 09/12/23 01:49 Temperature Source Temporal Artery Scan 09/12/23 01:49 Pulse 126 H 09/12/23 01:49 Respiratory Rate 19 09/12/23 01:49 Respiratory Effort Normal 09/12/23 02:00 Blood Pressure 133/97 H 09/12/23 01:49 Blood Pressure Position Supine 09/12/23 01:49 Pulse Oximetry 99 09/12/23 01:49 Oxygen Delivery Method Room Air 09/12/23 01:49 Oxygen Flow Rate 0 09/12/23 01:49 Pain Level 2 09/12/23 01:49 Medical Decision Making 28yo F presenting via EMS for presumed drug overdose. EMS called for unresponsive female. Patient reports that she was 'partying' tonight after a hard day. Had alcohol, cocaine, percocet, and weed. Boyfriend subsequently found her unresponsive, 'purple' in color. No abnormal movements noted. Called 911 and began chest compressions. On EMS arrival they found patient unresponsive with agonal respirations and a strong pulse. Gave BVM and administered 2mg IN narcan followed by 1mg IV narcan after which patient became responsive and began vomiting, nonbloody nobilious emesis. Tachycardiac on arrival, vital signs otherwise reassuring. Retching on exam, physical exam otherwise reassuring. History consistent with opiate overdose with subsequent opiate withdrawal symptoms; based on EMS report bystander chest compressions were likely unnecessary. Still vomiting s/p zofran; will give IV reglan. Will get CXR to eval for fracture as she did get compressions, VBG as unknown period of respiratory arrest though she is alert and breathing well now. CXR independently reviewed, no displaced fractures or pneumothorax on my view, agree with radiology read below. VBG with pH 7.30, unexpectedly *metabolic* acidosis with bicarb of 15 and respiratory compensation. ETOH 60. Patient does report cocaine use today which may be contributing. Will give IVFB, broaden workup to evaluate for other potential causes. N/V markedly improved after reglan, able to tolerate PO fluids and crackers. Expanded labs reviewed as below, CBC with marked leukocytosis to 23 (nonspecific), CMP confirms metabolic acidosis with bicarb of 19, mild hypokalemia at 3.3 (oral replacement ordered), hypocalcemia at 6.8 (i-nicole is a send out; will treat with PO calcium and magnesium) . Tylenol and salicylate levels negative. Lactate elevated at 2.7 (could be 2/t cocaine). Repeat VBG with slightly improved bicarb at 18. EKG sinus tachycardia with no concerning ST segment or T wave abnormalities however QTc is slightly prolonged at 500. Will add IV magnesium, send Mg level. UA not infected. Respiratory viral swab negative. Repeat VBG improved with bicarb 21, CMP with bicarb 23, lactate normalized at 0.6, Mag normal, trop mildly elevated at 79 in the setting of cocaine use. HR improved to 90's. Clinically event described remains most consistent with mixed drug overdose, opiate & cocaine. No events on monitor to suggest torsades and QTC while prolonged is not excessively so. No indication of infection on history or exam, not suggestive of sepsis. Description of event and response to narcan not consistent with seizure. Low suspicion for acute cardiac event. Will repeat troponin; if flat/downtrending would discharge home with Narcan. Imaging Data Radiologic Study: Imaging: X-Ray Radiologist's impression: IMPRESSION: No active disease is seen in the chest. Lab Data Lab results reviewed: Yes I reviewed the patient's lab results. Labs: Laboratory Tests Range/Units 09/12/23 09/12/23 09/12/23 02:05 04:09 04:50 WBC (4.4-10.8) 10^3/uL 23.41 H RBC (3.93-5.22) 10^6/uL 3.59 L Hgb (11.2-15.7) g/dL 11.4 Hct (36.0-46.0) % 34.0 L MCV (80-95) fL 95 MCH (27.0-33.0) pg 31.8 MCHC (32.0-36.0) % 33.5 RDW (11.7-14.6) % 13.1 Plt Count (130-400) 10^3/uL 303 MPV (8.0-11.0) fL 9.3 Immature Gran % % 0.6 Neutrophils % % 87.5 Lymphocytes % % 6.4 Monocytes % % 5.1 Eosinophils % % 0.1 Basophils % % 0.3 Nucleated RBC % (0.0-0.3) % 0.0 Absolute Neutrophils (1.2-6.7) 10^3/uL 20.48 H Absolute Lymphocytes (1.2-3.4) 10^3/uL 1.50 Absolute Monocytes (0.1-0.8) 10^3/uL 1.19 H Absolute Eosinophils (0.0-0.7) 10^3/uL 0.02 Absolute Basophils (0.0-0.2) 10^3/uL 0.07 RBC Morphology Normal VBG pH (7.31-7.41) 7.30 L 7.27 L VBG pCO2 (41-51) mmHg 29 L 39 L VBG pO2 mmHg 99 102 VBG HCO3 (23-28) mmol/L 15 L 18 L VBG Total CO2 (24-29) mmol/L 13 L 17 L VBG O2 Saturation % 97 98 VBG Base Excess (-2-3) mmol/L -12 L -9 L VBG Lactate (0.6-1.4) mmol/L 2.7 H* Sodium (136-145) mmol/L 141 Potassium (3.5-5.1) mmol/L 3.3 L Chloride (98-107) mmol/L 108 H Carbon Dioxide (21.0-32.0) mmol/L 19.4 L Anion Gap (3-11) mmol/L 13.6 H BUN (7-18) mg/dL 5 L Creatinine (0.55-1.02) mg/dL 0.7 Est GFR (CKD-EPI 2020) (mL/min/1.73m2) 122.25 Glucose (74-106) mg/dL 73 L Calcium (8.5-10.1) mg/dL 6.8 L Magnesium (1.8-2.4) mg/dL Total Bilirubin (0.2-1.0) mg/dL 0.5 AST (15-37) U/L 28 ALT (14-59) U/L 33 Alkaline Phosphatase (46-116) U/L 81 Troponin I (< or =60) ng/L Total Protein (6.4-8.2) g/dL 5.8 L Albumin (3.4-5.0) g/dL 3.6 Serum HCG, Qual Negative Urine Color (Yellow) Urine Clarity (Clear) Urine pH (5-8) Ur Specific [place] (1.005-1.025) Urine Protein (Neg-Trace) mg/dL Urine Ketones (Negative) mg/dL Urine Blood (Negative) Urine Nitrite (Negative) Urine Bilirubin (Negative) Urine Urobilinogen (Up to 0.2) mg/dL Ur Leukocyte Esterase (Negative) Urine Glucose (Negative) mg/dL Salicylates (<2.8) mg/dL < 2.8 Acetaminophen (10-30) ug/mL 3 Ethyl Alcohol (<10) mg/dL 60.7 H COVID-19 Source Nasopharynx SARS-CoV-2 (PCR) (Negative) Negative Influenza Type A (PCR) (Negative) Negative Influenza Type B (PCR) (Negative) Negative RSV (PCR) (Negative) Negative Range/Units 09/12/23 09/12/23 05:26 06:24 WBC (4.4-10.8) 10^3/uL RBC (3.93-5.22) 10^6/uL Hgb (11.2-15.7) g/dL Hct (36.0-46.0) % MCV (80-95) fL MCH (27.0-33.0) pg MCHC (32.0-36.0) % RDW (11.7-14.6) % Plt Count (130-400) 10^3/uL MPV (8.0-11.0) fL Immature Gran % % Neutrophils % % Lymphocytes % % Monocytes % % Eosinophils % % Basophils % % Nucleated RBC % (0.0-0.3) % Absolute Neutrophils (1.2-6.7) 10^3/uL Absolute Lymphocytes (1.2-3.4) 10^3/uL Absolute Monocytes (0.1-0.8) 10^3/uL Absolute Eosinophils (0.0-0.7) 10^3/uL Absolute Basophils (0.0-0.2) 10^3/uL RBC Morphology VBG pH (7.31-7.41) 7.32 VBG pCO2 (41-51) mmHg 41 VBG pO2 mmHg 85 VBG HCO3 (23-28) mmol/L 21 L VBG Total CO2 (24-29) mmol/L 20 L VBG O2 Saturation % 96 VBG Base Excess (-2-3) mmol/L -5 L VBG Lactate (0.6-1.4) mmol/L 0.6 Sodium (136-145) mmol/L 140 Potassium (3.5-5.1) mmol/L 3.9 Chloride (98-107) mmol/L 107 Carbon Dioxide (21.0-32.0) mmol/L 23.4 Anion Gap (3-11) mmol/L 9.6 BUN (7-18) mg/dL 6 L Creatinine (0.55-1.02) mg/dL 0.6 Est GFR (CKD-EPI 2020) (mL/min/1.73m2) 126.87 Glucose (74-106) mg/dL 92 Calcium (8.5-10.1) mg/dL 6.9 L Magnesium (1.8-2.4) mg/dL 1.9 Total Bilirubin (0.2-1.0) mg/dL 0.6 AST (15-37) U/L 29 ALT (14-59) U/L 32 Alkaline Phosphatase (46-116) U/L 79 Troponin I (< or =60) ng/L 79 H* Total Protein (6.4-8.2) g/dL 5.8 L Albumin (3.4-5.0) g/dL 3.6 Serum HCG, Qual Urine Color (Yellow) Yellow Urine Clarity (Clear) Clear Urine pH (5-8) 5.5 Ur Specific [place] (1.005-1.025) 1.015 Urine Protein (Neg-Trace) mg/dL Negative Urine Ketones (Negative) mg/dL Negative Urine Blood (Negative) Negative Urine Nitrite (Negative) Negative Urine Bilirubin (Negative) Negative Urine Urobilinogen (Up to 0.2) mg/dL 0.2 Ur Leukocyte Esterase (Negative) Negative Urine Glucose (Negative) mg/dL Negative Salicylates (<2.8) mg/dL Acetaminophen (10-30) ug/mL Ethyl Alcohol (<10) mg/dL COVID-19 Source SARS-CoV-2 (PCR) (Negative) Influenza Type A (PCR) (Negative) Influenza Type B (PCR) (Negative) RSV (PCR) (Negative) Quality:SDOH Health Related Social Needs: No Data to Display PFSH All Active Problems (Updated 07/24/23 @ 00:04 by MARY GORDON) Never uses contraception (Acute) History of OCPs and Depo in 2019 otherwise not actively contracepting Hydrosalpinx (Acute) bilateral. Adnexal cyst (Acute) Social History Smoking/Tobacco Use Status: Never Smoking risk assessment performed?: Yes Alcohol Intake: current Alcohol Intake frequency: a few times a month Alcohol type: wine Drug use: Occasionally Substance use type: marijuana Household members: other Details: Lives alone. Has pets. 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 Pets and animals: Yes Pets and animals: dog(s) Sexually active: Yes Do you feel safe at home: Yes Do you feel safe in your relationship?: Yes Additional Social history: Patient moved from [facility] in 2021 for relationship. Majority of her family reside in [place] PAWSS Have you Been Recently Intoxicated or Drunk Within the Last 30 days?: Yes Have you Ever Experienced Previous Episodes of Alcohol Withdrawal?: No Have you ever Experienced Withdrawal Seizures?: No Have you ever Experienced Delirium Tremens(DT)s?: No Have you ever undergone Alcohol Rehabilitation Treatment (i.e, inpt ot outpatient treatment programs)?: No Have you ever Experienced Blackouts?: No Have you ever Combined Alcohol with other Downers within the last 90 days?: Yes Have you ever Combined Alcohol with any other Substance of Abuse during the last 90 days?: Yes Positive Blood Alcohol level on Presentation? [PCS.BAL]: Yes Evidence of Increased Autonomic Activity (i.e. HR>120, tremor, sweating, agitation, nausea)?: Yes Result: 5
[2023-09-12 02:09] LABS: BE (Venous) -12 mmol/L (-2-3); HCO3 (Venous) 15 mmol/L (23-28); O2 Sat (Venous) 97 %; TCO2 (Venous) 13 mmol/L (24-29); pCO2 (Venous) 29 mmHg (41-51); pO2 (Venous) 99 mmHg
[2023-09-12] MEDS: Metoclopramide 10 MG/2 ML VIAL IVP (02:18)
[2023-09-12] MEDS: Normal Saline 1,000 ML 1000 ML IV ×3 (02:25→04:30)
[2023-09-12 02:26] LABS: ETHANOL BLOOD 60.7 mg/dL (<10); HCG Qual (Serum) Negative
--- NOTE | 2023-09-12 03:47 | DI.VRAD_ITS ---
PROCEDURE INFORMATION: Exam: XR Chest Exam date and time: 09/12/2023 2:50 AM Age: 28 years old Clinical indication: Other: Eval for rib/sternal fracture TECHNIQUE: Imaging protocol: Radiologic exam of the chest. Views: 2 views. COMPARISON: CT ABDOMEN PELVIS W 04/11/2023 12:00 AM FINDINGS: Lungs: No pulmonary consolidation is seen. Pleural spaces: No pleural effusion or pneumothorax is demonstrated. Heart/Mediastinum: The heart appears normal in size. Bones/joints: Within the limits of visualization, the visualized bony structures appear grossly intact. If there is persistent concern for rib/sternal fractures, dedicated CT imaging could be obtained for additional evaluation. IMPRESSION: No active disease is seen in the chest. Dictated and Authenticated by: Charan Tejeda MD. Ordering:KANIKA Miller MD
[2023-09-12 04:15] LABS: BE (Venous) -9 mmol/L (-2-3); HCO3 (Venous) 18 mmol/L (23-28); O2 Sat (Venous) 98 %; TCO2 (Venous) 17 mmol/L (24-29); pCO2 (Venous) 39 mmHg (41-51); pH (Venous) 7.27 (7.31-7.41); pO2 (Venous) 102 mmHg
[2023-09-12 04:20] LABS: Lactate 2.7 mmol/L (0.6-1.4)
[2023-09-12 04:21] LABS: Abs Immature Grans 0.15 10^3/uL (0.0-0.06); Absolute Eosinophil Count 0.02 10^3/uL (0.0-0.7); Absolute Monocyte Count 1.19 10^3/uL (0.1-0.8); Absolute Neutrophil Count 20.48 10^3/uL (1.2-6.7); Basophils % 0.3 %; Eosinophils % 0.1 %; HGB 11.4 g/dL (11.2-15.7); Immature Grans % 0.6 %; Lymphocytes % 6.4 %; MCH 31.8 pg (27.0-33.0); MCHC 33.5 % (32.0-36.0); MCV 95 fL (80-95); MPV 9.3 fL (8.0-11.0); Monocytes % 5.1 %; Neutrophils % 87.5 %; Platelet Count 303 10^3/uL (130-400); RBC 3.59 10^6/uL (3.93-5.22); RDW 13.1 % (11.7-14.6); RDW-SD 45.3 fL; WBC 23.41 10^3/uL (4.4-10.8)
[2023-09-12 04:22] LABS: Absolute Basophil Count 0.07 10^3/uL (0.0-0.2)
--- NOTE | 2023-09-12 04:30 | RT.EKG_ITS ---
APPROVED REPORT Exam: Resting ECG Reason for Exam: cocaine Patient Location: E HR:110 bpm ECG Measurements Heart Rate 110 AXIS IL 156 P 66 QRSd 81 QRS 44 QT 370 T 56 QTc 500 Conclusion Sinus tachycardia...rate> 99 Prolonged QT interval...QTc >495mS no ST segment or T wave abnormalities to suggest occlusive NE
[2023-09-12 04:34] LABS: Salicylate < 2.8 mg/dL (<2.8)
[2023-09-12 04:37] LABS: Acetaminophen 3 ug/mL (10-30)
[2023-09-12 04:38] LABS: ALT 33 U/L (14-59); AST 28 U/L (15-37); Albumin 3.6 g/dL (3.4-5.0); Alkaline Phosphatase 81 U/L (46-116); Anion Gap 13.6 mmol/L (3-11); BUN 5 mg/dL (7-18); Bilirubin, Total 0.5 mg/dL (0.2-1.0); CO2 19.4 mmol/L (21.0-32.0); CREATININE 0.7 mg/dL (0.55-1.02); Calcium 6.8 mg/dL (8.5-10.1); Chloride 108 mmol/L (98-107); Estimated GFR 122.25 (mL/min/1.73m2); Glucose 73 mg/dL (74-106); Potassium 3.3 mmol/L (3.5-5.1); Sodium 141 mmol/L (136-145); Total Protein 5.8 g/dL (6.4-8.2)
[2023-09-12 04:56] LABS: Diff Comment Diff Reviewed; RBC Morphology Normal
[2023-09-12] MEDS: Calcium Carbonate 1.5 GM TAB 6 GM PO (05:05)
[2023-09-12] MEDS: Magnesium Gluconate 500 MG TAB PO (05:05)
[2023-09-12 05:33] LABS: Bilirubin Negative (Negative); Blood Negative (Negative); Clarity Clear (Clear); Glucose Negative (Negative); Ketones Negative (Negative); Leukocyte Esterase Negative (Negative); Nitrite Negative (Negative); Specific Gravity 1.015 (1.005-1.025); Urobilinogen 0.2 mg/dL (Up to 0.2); pH 5.5 (5-8)
[2023-09-12 05:39] LABS: COVID-19 PCR Negative (Negative); Influenza A PCR Negative (Negative); Influenza B PCR Negative (Negative); RSV PCR Negative (Negative)
[2023-09-12 05:41] LABS: Source Nasopharynx
[2023-09-12] MEDS: MAGNESIUM SULFATE 2 GM/50 ML BAG IVINF (05:50)
[2023-09-12] MEDS: Potassium Chloride Liquid 20 MEQ PKT 40 MEQ PO (06:08)
[2023-09-12 06:28] LABS: BE (Venous) -5 mmol/L (-2-3); HCO3 (Venous) 21 mmol/L (23-28); O2 Sat (Venous) 96 %; TCO2 (Venous) 20 mmol/L (24-29); pCO2 (Venous) 41 mmHg (41-51); pH (Venous) 7.32 (7.31-7.41); pO2 (Venous) 85 mmHg
[2023-09-12 06:33] LABS: Lactate 0.6 mmol/L (0.6-1.4)
[2023-09-12 06:46] LABS: ALT 32 U/L (14-59); AST 29 U/L (15-37); Albumin 3.6 g/dL (3.4-5.0); Alkaline Phosphatase 79 U/L (46-116); Anion Gap 9.6 mmol/L (3-11); BUN 6 mg/dL (7-18); Bilirubin, Total 0.6 mg/dL (0.2-1.0); CO2 23.4 mmol/L (21.0-32.0); CREATININE 0.6 mg/dL (0.55-1.02); Calcium 6.9 mg/dL (8.5-10.1); Chloride 107 mmol/L (98-107); Estimated GFR 126.87 (mL/min/1.73m2); Glucose 92 mg/dL (74-106); Magnesium 1.9 mg/dL (1.8-2.4); Potassium 3.9 mmol/L (3.5-5.1); Sodium 140 mmol/L (136-145); Total Protein 5.8 g/dL (6.4-8.2)
[2023-09-12 06:51] LABS: Troponin I 79 ng/L (< or =60)
--- NOTE | 2023-09-12 08:45 | RT.EKG_ITS ---
APPROVED REPORT Exam: Resting ECG Reason for Exam: initially unresponsive, Patient Location: E HR:76 bpm ECG Measurements Heart Rate 76 AXIS CA 127 P 72 QRSd 76 QRS 43 QT 396 T 57 QTc 446 Conclusion Sinus rhythm...normal P axis, V-rate 60- 99
--- NOTE | 2023-09-12 09:07 | W.EDPROG ---
Date of service: 09/12/23 Time of Service: 09:07 Medical Decision Making Patient's second troponin downtrending at 70, she is currently sleeping but awakens easily to voice and has no complaints. Denies any chest pain or difficulty breathing, she denies taking any drugs other than Percocet. Discussed this seems most likely due to a drug overdose given response to Narcan, she is stable for discharge advised to follow-up with her PCP and return precautions given, she declines Narcan Lab Data Lab results reviewed: Yes I reviewed the patient's lab results. ECG Data Attestation: I personally reviewed and interpreted this ECG (s) as follows: Prior ECG tracings: available for review Interpretation: 2nd ekg sinus rhythm rate of 76 no stemi Quality:SDOH Health Related Social Needs: No Data to Display Sign Out Sign Out Data: Sign Out Comment: Presented as presumed overdose, unresponsive and cyanotic, bystander CPR (compressions only); on EMS arrival strong pulse but agonal respirations. Given narcan, became responsive and started vomiting. Reports polysubstance use. VBG unexpectedly showed significant metabolic acidosis. Further workup for metabolic causes showed elevated lactate and WBC, EKG with mild QT prolongation. Mild trop bump. Pending delta trop, if stable would discharge home with Narcan. Last updated by Angela Kilgore MD at 09/12/23 07:22 Discharge Plan Disposition Patient Disposition: Home Condition: Stable Discharge Details Clinical Impression: Unresponsive episode Primary Care Provider: Unknown,Unknown ED Provider: Nabil Fernandez Home Meds and New Rx's Prescriptions: Continued ondansetron 4 mg tablet,disintegrating 4 mg PO Q8H Qty: 20 0RF Discharge Instructions Additional Instructions: Follow-up with your primary care provider within 1 to 2 weeks Try to avoid using medications or drugs such as Percocet if you are consuming alcohol. Return to the emergency department if you have severe chest pain, difficulty breathing or feel significantly more ill.
[2023-09-12 09:26] LABS: Troponin I 70 ng/L (< or =60)
== END 2023-09-12 09:56 | disposition home or self-care (01) ==
PROVIDERS: Student in an Organized Health Care Education/Training Program; Emergency Provider Emergency Medicine
DX: R40.4 Transient alteration of awareness (principal); T40.2X1A Poisoning by other opioids, accidental (unintentional), initial encounter
CPT/HCPCS: 00123; 36415; 80053; 82805; 87637; 93005; 96361; 96365; 96375; 99284; 71046; 80320; 80329; 81003; 83605; 83735; 84484; 84703; 85025; 93010; 99283; J2765; J3475

== ENCOUNTER 2024-01-12 20:27 | Emergency (ER) | payer SELFPAY ==
[2024-01-12 20:39] VITALS: BP 133/71; PULSE 85; TEMP 37.5; O2SAT 99
--- NOTE | 2024-01-12 20:45 | RT.EKG_ITS ---
APPROVED REPORT Exam: Resting ECG Reason for Exam: vomiting, nausea Patient Location: E HR:80 bpm ECG Measurements Heart Rate 80 AXIS OR 131 P 67 QRSd 79 QRS 35 QT 408 T 43 QTc 472 Conclusion Sinus rhythm 80 no stemi
--- NOTE | 2024-01-12 21:00 | DI.CT_ITS ---
Exam(s) CT ABDOMEN PELVIS W EXAM: CT ABDOMEN PELVIS W CLINICAL HISTORY: RLQ pain. TECHNIQUE: Imaging Protocol: Axial computed tomography images with coronal and sagittal reformatted images were created and reviewed CONTRAST MATERIAL: Intravenous: Omnipaque 350 Contrast volume:80 ml Oral: no COMPARISON: CT CT ABDOMEN PELVIS W from 04/11/2023 FINDINGS: ABDOMEN and PELVIS: Lung Bases: No acute findings. Liver: Normal density. No suspicious mass. Gallbladder and biliary tract: No radiodense calculus. No biliary dilation. Pancreas: Normal density. No abnormal calcifications or inflammatory process. No evidence of mass. Spleen: Normal. Kidneys: Normal size, contour and axis. No radiodense stones. No obstructive uropathy. No suspicious masses seen. Adrenal glands: No masses seen. Vasculature: Abdominal aorta non-dilated. Soft tissues: Unremarkable. Bladder: No gross wall thickening. No calculi.No focal mass. Bowel: No obstruction. No bowel wall thickening. Appendix normal. Peritoneal cavity: No ascites. No focal collection. No mesenteric inflammatory response. Bones: Unremarkable for age. Reproductive organs: Bilateral fluid-filled tubular structures in the pelvis consistent with previous ly identified hydrosalpinx. The left hip decreased in size compared to prior. Right side also sligh tly decreased in size. No findings to suggest tumor ovarian abscess. Lymph nodes: No pathologically enlarged lymph nodes. IMPRESSION:: Bilateral hydrosalpinx with some improvement from prior exam. No acute abnormality in the abdomen or pelvis. RADIATION DOSE DELIVERED: 257.88mGy.cm Total DLP DATA REPOSITORY: All CT scans at this facility are submitted to the National Radiology Data Registry (NRDR) Dose Index Registry (DIR) with the [employer] (A[employer]). RADIATION OPTIMIZATION: All CT scans at this facility use at least one of these dose optimization te chniques: automated exposure control; mA and/or kV adjustment per patient size (includes targeted exa ms where dose is matched to clinical indication); or iterative reconstruction.
[2024-01-12] MEDS: Lactated Ringers 1,000 ML 1000 ML IV (21:02)
[2024-01-12] MEDS: Ondansetron 4 MG/2 ML VIAL IVP (21:03)
[2024-01-12 21:04] LABS: Absolute Basophil Count 0.11 10^3/uL (0.0-0.2); Absolute Eosinophil Count 0.09 10^3/uL (0.0-0.7); Absolute Lymphocyte Count 2.65 10^3/uL (1.2-3.4); Absolute Monocyte Count 0.86 10^3/uL (0.1-0.8); Absolute Neutrophil Count 17.71 10^3/uL (1.2-6.7); Basophils % 0.5 %; Eosinophils % 0.4 %; HCT 43.7 % (36.0-46.0); HGB 14.7 g/dL (11.2-15.7); Immature Grans % 0.5 %; Lymphocytes % 12.3 %; MCH 32.3 pg (27.0-33.0); MCHC 33.6 % (32.0-36.0); MCV 96 fL (80-95); MPV 9.6 fL (8.0-11.0); Neutrophils % 82.3 %; Platelet Count 423 10^3/uL (130-400); RBC 4.55 10^6/uL (3.93-5.22); RDW 13.1 % (11.7-14.6); RDW-SD 46.7 fL; WBC 21.52 10^3/uL (4.4-10.8)
[2024-01-12 21:23] LABS: ALT 31 U/L (14-59); AST 23 U/L (15-37); Albumin 4.4 g/dL (3.4-5.0); Alkaline Phosphatase 99 U/L (46-116); Anion Gap 12.7 mmol/L (3-11); BUN 11 mg/dL (7-18); Bilirubin, Total 0.59 mg/dL (0.2-1.0); CO2 24.3 mmol/L (21.0-32.0); CREATININE 0.8 mg/dL (0.55-1.02); Calcium 9.5 mg/dL (8.5-10.1); Chloride 104 mmol/L (98-107); Estimated GFR 104.15 (mL/min/1.73m2); Glucose 145 mg/dL (74-106); Lipase 41 U/L (16-77); Magnesium 1.8 mg/dL (1.8-2.4); Potassium 3.3 mmol/L (3.5-5.1); Sodium 141 mmol/L (136-145); Total Protein 7.1 g/dL (6.4-8.2)
[2024-01-12 21:28] LABS: HCG Qual (Serum) Negative
[2024-01-12] MEDS: MORPHine 4 MG/ML SYR IVP (21:30)
[2024-01-12] MEDS: Normal Saline - Diluent 50 ML VIAL IJ (21:38)
[2024-01-12] MEDS: Omnipaque 350 MG/ML 100 ML BTL IJ (21:39)
[2024-01-12 21:41] LABS: Bilirubin Small (Negative); Blood Negative (Negative); Clarity Clear (Clear); Glucose Negative (Negative); Ketones 40 mg/dL (Negative); Leukocyte Esterase Negative (Negative); Nitrite Negative (Negative); Specific Gravity >= 1.030 (1.005-1.025); Urobilinogen 0.2 mg/dL (Up to 0.2)
[2024-01-12 22:23] VITALS: PULSE 68
[2024-01-12] MEDS: ACETAMINOPHEN 1,000 MG/100 ML BTL 400 MG IVPB (22:26)
[2024-01-12 22:30] VITALS: PULSE 67
[2024-01-12 22:40] VITALS: PULSE 80
[2024-01-12 22:50] VITALS: PULSE 86
--- NOTE | 2024-01-12 22:56 | DI.VRAD_ITS ---
PROCEDURE INFORMATION: Exam: CT Abdomen And Pelvis With Contrast Exam date and time: 01/12/2024 9:45 PM Age: 28 years old Clinical indication: Vomiting; Abdominal pain; Other: Rlq pain; Additional info: Rlq pain, vomitting TECHNIQUE: Imaging protocol: Computed tomography of the abdomen and pelvis with contrast. Contrast material: OMNI 350; Contrast volume: 80 ml; Contrast route: INTRAVENOUS (IV); COMPARISON: CT ABDOMEN PELVIS W 04/11/2023 12:00 AM FINDINGS: Liver: Normal. No mass. Gallbladder and biliary ducts: Normal. No calcified stones. No ductal dilation. Pancreas: Normal. No ductal dilation. Spleen: Normal. No splenomegaly. Adrenal glands: Normal. No mass. Kidneys and ureters: Normal. No hydronephrosis. Stomach and bowel: Unremarkable. No obstruction. No mucosal thickening. Appendix: No evidence of appendicitis. Intraperitoneal space: Unremarkable. No free air. No significant fluid collection. Vasculature: Unremarkable. No abdominal aortic aneurysm. Lymph nodes: Unremarkable. No enlarged lymph nodes. Urinary bladder: Unremarkable as visualized. Reproductive: 5.5 cm right adnexal cyst, possibly ovarian in origin with persistent tubular cystic areas within bilateral adnexa suspicious for hydrosalpinx versus tubo-ovarian abscesses. Bones/joints: Unremarkable. No acute fracture. Soft tissues: Unremarkable. IMPRESSION: 5.5 cm right adnexal cyst, possibly ovarian in origin with persistent tubular cystic areas within bilateral adnexa suspicious for hydrosalpinx versus tubo-ovarian abscesses. Clinically correlate with sonogram for further evaluation if clinically warranted.. Dictated and Authenticated by: Nabil Dempsey MD. Ordering:DUNG Burns MD
--- NOTE | 2024-01-12 23:35 | ED.GENADUL_ITS ---
Discharge Plan Disposition Patient Disposition: Home Condition: Stable Discharge Details Clinical Impression: Adnexal cyst Primary Care Provider: Unknown,Unknown ED Provider: Katy Fuller Home Meds and New Rx's Prescriptions: New doxycycline monohydrate 100 mg capsule 100 mg PO BID Qty: 10 0RF ondansetron HCl 4 mg tablet 4 mg PO Q8-10H 1 Days Qty: 10 0RF Discharge Instructions Additional Instructions: Please follow-up for ultrasound tomorrow and follow-up with Dr. Moss they will see you in the office, call first thing in the morning I placed you on the referral list Take ibuprofen and Tylenol as needed for pain Zofran as needed for nausea and vomiting, you will receive a dose of ceftriaxone which we will treat you as though you have pelvic inflammatory disease You will also have a prescription for doxycycline which she will take for the next 14 days Yogurt daily while on antibiotic Please return she develop fever, chills, or develop new or worsening complaints Referrals: Christie Moss MD [ [facility] STAFF PHYSICIAN] - 1 day HPI General Date/Time Provider Initiated Documentation: 01/12/24 20:48 . HPI Narrative: This 28-year-old female presents with report of right lower quadrant pain for the past several days of vomiting for the past 24 hours. Patient states she has had episodes similar to this 3 times in the past. She was admitted during her last episode. She sexually active and has multiple partners. She blastoma to her sexual acts approximately month ago. Related Data Home Medications ?Medication ?Instructions ?Recorded ?Confirmed doxycycline monohydrate 100 mg 100 mg PO BID #10 caps 01/12/24 capsule ondansetron HCl 4 mg tablet 4 mg PO Q8-10H 24 hours #10 tabs 01/12/24 Previous Rx's ?Medication ?Instructions ?Recorded doxycycline monohydrate 100 mg 100 mg PO BID #10 caps 01/12/24 capsule ondansetron HCl 4 mg tablet 4 mg PO Q8-10H 24 hours #10 tabs 01/12/24 Allergies Allergy/AdvReac Type Severity Reaction Status Date / Time No Known Allergies Allergy Verified 01/12/24 20:44 General Stated Complaint: Abd Prob BERT: 3 Exam Narrative Exam Narrative: 28-year-old female no acute distress, right lower quadrant tenderness on assessment, no rebound or guarding, nontender adnexal exam, no cervical motion tenderness, no CVA tenderness Course Vital Signs Vital signs: Vital Signs Temperature 37.5 C 01/12/24 20:39 Pulse 85 01/12/24 20:39 Blood Pressure 133/71 01/12/24 20:39 Pulse Oximetry 99 01/12/24 20:39 Temperature 37.5 C 01/12/24 20:39 Pulse 85 01/12/24 20:39 Pulse 86 01/12/24 22:50 Respiratory Effort Normal, Non-Labored 01/12/24 20:58 Blood Pressure 133/71 01/12/24 20:39 Pulse Oximetry 99 01/12/24 20:39 Pain Level 10 01/12/24 20:39 Lab/Test Results Lab/Test Results: Laboratory Tests Range/Units 01/12/24 01/12/24 20:55 21:25 WBC (4.4-10.8) 10^3/uL 21.52 H RBC (3.93-5.22) 10^6/uL 4.55 Hgb (11.2-15.7) g/dL 14.7 Hct (36.0-46.0) % 43.7 MCV (80-95) fL 96 H MCH (27.0-33.0) pg 32.3 MCHC (32.0-36.0) % 33.6 RDW (11.7-14.6) % 13.1 Plt Count (130-400) 10^3/uL 423 H MPV (8.0-11.0) fL 9.6 Immature Gran % % 0.5 Neutrophils % % 82.3 Lymphocytes % % 12.3 Monocytes % % 4.0 Eosinophils % % 0.4 Basophils % % 0.5 Nucleated RBC % (0.0-0.3) % 0.0 Absolute Neutrophils (1.2-6.7) 10^3/uL 17.71 H Absolute Lymphocytes (1.2-3.4) 10^3/uL 2.65 Absolute Monocytes (0.1-0.8) 10^3/uL 0.86 H Absolute Eosinophils (0.0-0.7) 10^3/uL 0.09 Absolute Basophils (0.0-0.2) 10^3/uL 0.11 Sodium (136-145) mmol/L 141 Potassium (3.5-5.1) mmol/L 3.3 L Chloride (98-107) mmol/L 104 Carbon Dioxide (21.0-32.0) mmol/L 24.3 Anion Gap (3-11) mmol/L 12.7 H BUN (7-18) mg/dL 11 Creatinine (0.55-1.02) mg/dL 0.8 Est GFR (CKD-EPI 2020) (mL/min/1.73m2) 104.15 Glucose (74-106) mg/dL 145 H Calcium (8.5-10.1) mg/dL 9.5 Magnesium (1.8-2.4) mg/dL 1.8 Total Bilirubin (0.2-1.0) mg/dL 0.59 AST (15-37) U/L 23 ALT (14-59) U/L 31 Alkaline Phosphatase (46-116) U/L 99 Total Protein (6.4-8.2) g/dL 7.1 Albumin (3.4-5.0) g/dL 4.4 Lipase (16-77) U/L 41 Serum HCG, Qual Negative Urine Color (Yellow) Yellow Urine Clarity (Clear) Clear Urine pH (5-8) 6.0 Ur Specific [place] (1.005-1.025) >= 1.030 H Urine Protein (Neg-Trace) mg/dL Negative Urine Ketones (Negative) mg/dL 40 H Urine Blood (Negative) Negative Urine Nitrite (Negative) Negative Urine Bilirubin (Negative) Small H Urine Urobilinogen (Up to 0.2) mg/dL 0.2 Ur Leukocyte Esterase (Negative) Negative Urine Glucose (Negative) mg/dL Negative Medical Decision Making Patient presenting with vomiting and right lower quadrant pain, white count of 21,000 neutrophil count 17,000. Of note, this is very similar to patient's prior presentation CT abdomen and pelvis was ordered for further evaluation after negative test which shows 5.5 cm ovarian cyst, at time of reassessment patient is sleeping in the room, her exam is not concerning for obvious ovarian torsion. There is question of whether or not this may be a tubo-ovarian abscess on CT findings, recommendation for ultrasound. I did speak with Dr. Bautista, OBSTETRIC ASSISTANT who recommends outpatient ultrasound, ceftriaxone and doxycycline and follow-up with Dr. Ghotra in the office tomorrow. Patient appears well on reassessment, she does not show any signs of systemic illness at time of reassessment is able to tolerate p.o. She will need outpatient reassessment and ultrasound tomorrow, she feels comfortable with this plan, ceftriaxone 1 g was administered and patient received 100 mg of doxycycline prior to departure. Return precautions reviewed and patient expressed understanding Quality:SDOH Health Related Social Needs: No Data to Display PFSH All Active Problems (Updated 01/12/24 @ 23:16 by JONATHON Aldrich) Never uses contraception (Acute) History of OCPs and Depo in 2019 otherwise not actively contracepting Hydrosalpinx (Acute) bilateral. Adnexal cyst (Acute) Social History Smoking/Tobacco Use Status: Never Smoking risk assessment performed?: Yes Alcohol Intake: current Alcohol Intake frequency: a few times a month Alcohol type: wine Drug use: Daily Substance use type: marijuana Household members: other Details: Lives alone. Has pets. 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 Pets and animals: Yes Pets and animals: dog(s) Sexually active: Yes Do you feel safe at home: Yes Do you feel safe in your relationship?: Yes Additional Social history: Patient moved from [facility] in 2021 for relationship. Majority of her family reside in [facility] Have you Been Recently Intoxicated or Drunk Within the Last 30 days?: No Have you Ever Experienced Previous Episodes of Alcohol Withdrawal?: No Have you ever Experienced Withdrawal Seizures?: No Have you ever Experienced Delirium Tremens(DT)s?: No Have you ever undergone Alcohol Rehabilitation Treatment (i.e, inpt ot outpatient treatment programs)?: No Have you ever Experienced Blackouts?: No Have you ever Combined Alcohol with other Downers within the last 90 days?: No Have you ever Combined Alcohol with any other Substance of Abuse during the last 90 days?: No Positive Blood Alcohol level on Presentation? [PCS.BAL]: No Evidence of Increased Autonomic Activity (i.e. HR>120, tremor, sweating, agitation, nausea)?: No Result: 0
[2024-01-12] MEDS: Ketorolac 15 MG/ML VIAL 7.5 MG IVP (23:40)
[2024-01-12] MEDS: cefTRIAXone 1 GM/50 ML BAG IVPB (23:40)
[2024-01-12] MEDS: Doxycycline Hyclate 100 MG, 2 CAPS/BTL PO (23:51)
[2024-01-12] MEDS: Ondansetron O.D.T. 4 MG TABEF, 3 TABS/BTL PO (23:51)
[2024-01-13 00:33] VITALS: BP 116/53; PULSE 73; RESP 16; TEMP 37; O2SAT 96
[2024-01-16 12:57] LABS: Chlamydia Result Negative (Negative); GC Result Negative (Negative)
== END 2024-01-13 00:33 | disposition home or self-care (01) ==
PROVIDERS: Emergency Provider Physician Assistant
DX: N83.201 Unspecified ovarian cyst, right side (principal); N70.11 Chronic salpingitis
CPT/HCPCS: 36415; 80053; 83690; 87491; 87591; 93005; 96361; 96365; 96367; 96375; 99285; 74177; 81003; 83735; 84703; 85025; 87480; 87510; 87660; 93010; 99284; J0131; J0696; J1885; J2270; J2405; J3490